=== PATIENT | male | born 1955 | race Caucasian/White ===

== ENCOUNTER 2021-05-19 12:01 | Inpatient (IN) | payer OTHER, SELFPAY ==
[2021-05-19] VITALS (34 sets, daily range): BP systolic 78–132; BP diastolic 49–106; PULSE 109–161; RESP 17–34; TEMP 36.8–40.3; O2SAT 91–100; BMI 24.0; BMI 26.3
--- NOTE | 2021-05-19 12:14 | RAD_ITS ---
STUDY: X-RAY CHEST REASON FOR EXAM: Male, 66 years old. Fever, dyspnea postop day 8 TECHNIQUE: Frontal view COMPARISON: None. FINDINGS: The lungs are expanded. Mild basilar atelectasis. Normal size heart. Normal mediastinum and alejandra. Normal visualized pulmonary arteries. Normal visualized aortic arch and descending thoracic aorta. Normal visualized thoracic spine. Normal visualized ribs, clavicles, and shoulders. There is no demonstrated abnormality of the visualized soft tissue structures of the upper abdomen. RAD/Chest 1 View (Portable) IMPRESSION: Mild basilar atelectasis. Electronically Signed: Zackery Huntley DO at 12:51 EST Tel [phone], Service support ,
--- NOTE | 2021-05-19 12:14 | EKG12_ITS ---
Test Reason : FEVER Blood Pressure : / mmHG Vent. Rate : 129 BPM Atrial Rate : 129 BPM P-R Int : 112 ms QRS Dur : 094 ms QT Int : 326 ms P-R-T Axes : 053 030 029 degrees QTc Int : 477 ms Sinus tachycardia Otherwise normal ECG Confirmed by ANTWAN MELENDREZ, ROGELIO ([id number]), business editor MARTHA PRIEST ([id number]) on 05/20/2021 1:56:08 PM Referred By: EDGAR Confirmed By:ROGELIO MONCADA MD
--- NOTE | 2021-05-19 12:15 | EDS_ITS ---
HPI History of Present Illness Chief Complaint: Fever Informant: patient and spouse/S.O. Onset/Context/Timing Onset: Today Context: Sudden Onset Timing: Continuous Quality: Fever, shaking chills and urinary symptoms Location: Current Severity: Mild Maximum Severity: Moderate Worsened by: Postop day 8, surgery Relieved by: Nothing Associated Symptoms Associated Symptoms: Per HPI Narrative Narrative: Patient is an elderly male who underwent urologic surgery at [facility] on May 10. He was released May 16. Patient states the surgery was planned take only 30 minutes. Apparently took 4 hours. He had surgery on his bladder and prostate. He had surgery because of cancer. He states he had continuous irrigation for several days. He reports dysuria, frequency and now complains of fever with shaking chills. He denies abdominal pain. He does report nausea. He does report mild shortness of breath and dyspnea on exertion. He has no antibiotic allergies. Prior similar symptoms: No Recent Illness/Hospitalization: Yes [facility] Medical History (Updated 05/19/21 @ 14:[address] Alvaro Broderick MD) Bladder cancer Bladder cancer Hypertension Home Medications NK 05/19/21 [History Last Taken Unknown] Allergy/AdvReac Type Severity Reaction Status Date / Time Iodinated Contrast Media Allergy Rash Verified 05/19/21 12:02 [CONTRASTS] Social History (Updated 05/19/21 @ 12:[address] Alvaro Broderick MD) household members: spouse Smoking Status: Former smoker alcohol intake: current alcohol intake frequency: holidays/special occasions o nly substance use type: does not use ROS ROS ED Constitutional Constitutional ED: Reports chills, fever(s) and sweats; Denies subjective or weight loss Eyes Eyes: Denies blurry vision, change in vision or diplopia ENT ENT ED: Denies ear pain, rhinorrhea or sore throat Cardiovascular Cardiovascular: Reports palpitations and racing heartbeat; Denies chest pain, orthopnea or paroxysmal nocturnal dyspnea Respiratory/Chest Respiratory/Chest: Reports cough, dyspnea and dyspnea on exertion; Denies orthopnea, paroxysmal nocturnal dyspnea or sputum Gastrointestinal Gastrointestinal: Reports nausea; Denies abdominal pain, diarrhea, melena or vomiting Genitourinary Genitourinary ED: Reports dysuria and urinary frequency; Denies hematuria Musculoskeletal Musculoskeletal: Reports arthralgias and myalgias; Denies back pain or neck pain Integumentary Denies rash Neurologic Neurologic: Reports weakness; Denies headache(s) or paresthesias Endocrine Endocrinology: Denies polydipsia, polyphagia or polyuria EXAM Physical Exam Const Vital Signs: 05/19/21 12:02 05/19/21 12:05 05/19/21 12:14 Temperature 102.6 F H 102.6 F H 102.6 F H Temperature Source Oral Oral Oral Pulse Rate 150 H 137 H 150 H Respiratory Rate 20 H 23 H 19 H Respiratory Effort Respiratory Pattern Blood Pressure 122/72 H 122/72 H Blood Pressure Mean 88 88 Pulse Ox 96 95 95 Oxygen Delivery Method Room Air Room Air Room Air 05/19/21 12:52 05/19/21 13:00 05/19/21 13:59 Temperature 98.8 F 99.7 F H Temperature Source Oral Oral Pulse Rate 122 H 117 H Respiratory Rate 22 H 19 H Respiratory Effort Normal Non-Labored Respiratory Pattern Tachypnea Blood Pressure 101/55 L 101/55 L Blood Pressure Mean 70 70 Pulse Ox 96 94 Oxygen Delivery Method Room Air Room Air 05/19/21 14:00 Temperature 99.7 F H Temperature Source Oral Pulse Rate 115 H Respiratory Rate 21 H Respiratory Effort Respiratory Pattern Blood Pressure 90/55 L Blood Pressure Mean 66 Pulse Ox 95 Oxygen Delivery Method Room Air Positive well nourished and well developed General Appearance ED: well developed and diaphoretic; Negative for pallor HEENT Reports dry mucous membranes Negative for trauma or tenderness Mouth ED: Yes dry mucous membranes Mouth: dry mucous membranes Eyes PERRL and EOMs intact bilaterally General Eye ED: Negative for pale conjunctiva or scleral icterus Neck no lymphadenopathy, supple and no JVD Chest Wall inspection of chest normal Resp normal respiratory effort and clear to auscultation bilaterally Effort and Inspection: Negative for pain with movement Cardio regular rhythm, S1 normal heart sound, S2 normal heart sound and no murmurs Rate: tachycardic GI normal to inspection, nondistended, normoactive bowel sounds, non-tender and non-distended Palpation: soft Back/Spine no CVA tenderness Thoracic Spine / Upper Back: Negative for thoracic spinal tenderness or paraspinal muscle tenderness Extremity normal to inspection General Extremety ED: Negative for edema or tenderness General Extremity: Negative for edema Neuro oriented x3, CN's II-XII intact bilaterally and no sensory deficits noted Sensorium / Orientation: alert Motor Exam: strength 5/5 throughout Psych mental status grossly normal Skin no rashes or lesions noted General Skin Exam: Negative for jaundice or pallor MDM MDM MDM Narrative Medical decision making narrative: We will received a liter of normal saline. He took Tylenol 1.5 hours prior to presentation. Since this is postop he received 2 g of cefepime. Since his abdominal exam is benign a CT of the abdomen was not ordered. If urine does not indicate evidence of infection will obtain CT of the abdomen to assess for abscess. Presents with urologic symptoms and concern for sepsis. Patient's abdomen is remarkable for tympana otherwise negative. Suspect this is related to his bladder surgery. Appropriate blood work was obtained. Chest x-ray obtained because of complaint of shortness of breath which may be due to sepsis and fever. Spoke with his urologist. He states that patient could stay here. He suspects the infection is due to the prolonged placement of Wylie. When I went to inform patient's that we would admit him to [facility] but his blood pressure was noted to be 90 systolic with a mean arterial pressure of 66. 1/3 L of normal saline was ordered. Lab Data Attestation: I reviewed the patient's lab results. Lab results narrative: Hemoglobin was 7.7 on May 13. Creatinine was 1.43. Creatinine was 1.23 on March 26. Labs: Laboratory Results - last 24 hr 05/19/21 05/19/21 05/19/21 12:17 12:17 12:17 WBC 4.6 RBC 2.74 L Hgb 7.0 L Hct 21.5 L MCV 78.5 L MCH 25.5 L MCHC 32.6 RDW Std Deviation 44.4 H RDW Coeff of Olga 15.4 H Plt Count 109 L MPV 10.5 Immature Gran % (Auto) 0.900 Neut % (Auto) 73.3 H Lymph % (Auto) 3.7 L [place] % (Auto) 22.1 H Eos % (Auto) 0.0 Baso % (Auto) 0.0 Absolute Neuts (auto) 3.4 Absolute Lymphs (auto) 0.17 L Nucleated RBC % 0 Atypical Lymphocytes 1+ PT 14.9 INR 1.2 APTT 38.7 H Sodium 133 L Potassium 4.3 Chloride 100 Carbon Dioxide 23.0 Anion Gap 10 BUN 20 H Creatinine 2.51 H Estim Creat Clear Calc 30.00 Est GFR (MDRD) Af Amer 33 L Est GFR (MDRD) Non-Af 27 L BUN/Creatinine Ratio 8.0 L Glucose 197 H Lactic Acid Calcium 8.1 L Total Bilirubin 1.00 AST 39 H ALT 23 Alkaline Phosphatase 46 Total Protein 5.8 L Albumin 2.2 L Globulin 3.6 Albumin/Globulin Ratio 0.6 L Urine Color Urine Clarity Urine pH Ur Specific [place] Urine Protein Urine Glucose (UA) Urine Ketones Urine Occult Blood Urine Nitrite Urine Bilirubin Urine Urobilinogen Ur Leukocyte Esterase Urine RBC Urine WBC Ur Squamous Epith Cells Urine Bacteria Urine Mucus 05/19/21 05/19/21 12:17 13:05 WBC RBC Hgb Hct MCV MCH MCHC RDW Std Deviation RDW Coeff of Olga Plt Count MPV Immature Gran % (Auto) Neut % (Auto) Lymph % (Auto) [place] % (Auto) Eos % (Auto) Baso % (Auto) Absolute Neuts (auto) Absolute Lymphs (auto) Nucleated RBC % Atypical Lymphocytes PT INR APTT Sodium Potassium Chloride Carbon Dioxide Anion Gap BUN Creatinine Estim Creat Clear Calc Est GFR (MDRD) Af Amer Est GFR (MDRD) Non-Af BUN/Creatinine Ratio Glucose Lactic Acid 2.6 H* Calcium Total Bilirubin AST ALT Alkaline Phosphatase Total Protein Albumin Globulin Albumin/Globulin Ratio Urine Color Yellow Urine Clarity Cloudy Urine pH 6.5 Ur Specific [place] 1.010 Urine Protein 100 H Urine Glucose (UA) Normal Urine Ketones Negative Urine Occult Blood 250 H Urine Nitrite Negative Urine Bilirubin Negative Urine Urobilinogen Normal Ur Leukocyte Esterase 500 H Urine RBC 10-25 SEEN Urine WBC >100 SEEN Ur Squamous Epith Cells 0 SEEN Urine Bacteria 1+ Urine Mucus 0 SEEN Radiography Chest X-Ray - ED: 1 View and Read by ED Physician (Single view portable chest x- ray interpreted by me at 1244. There is minimal chronic changes. Cardiac silhouette size normal. There is an ossific gas pattern noted. [place] structures are unremarkable.) Diagnostic Testing: Clinical Impression(s) from Imaging Studies Chest X-Ray 05/19/21 12:14 IMPRESSION: Mild basilar atelectasis. Electronically Signed: Zackery Huntley DO at 12:51 EST Tel [phone], Service support , EKG Initial EKG: Attestation: I personally reviewed and interpreted this EKG as follows: Interpretation: Sinus Tachycardia (Ventricular rate 129. The EKG is otherwise unremarkable. WA interval 212 ms. Cures duration 94 ms. QT duration 326 ms. Earle is normal.) Critical Care Time Critical Care Time: Yes Critical care time (excluding procedures): 30-74 minutes (34 minutes), Including time spent: (History, physical, documentation, review of patient's records from [facility], interpretation laboratory results, initiation of therapy), Discussing w/Patient &/or Family/Test Inspection Engineer, Discussing w/Consultants and Arranging Admission or Transfer Discharge Plan Triage Chief Complaint: Fever ED Provider: Alvaro Broderick Dx/Rx/DC Orders Clinical Impression: Severe sepsis with acute organ dysfunction, Sinus tachycardia, Postoperative anemia, FRANCIS (acute kidney injury), Acidosis, lactic, Acute hypotension Prescriptions: No Action NK RF: 0 Primary Care Provider: Care Physician,No Primary Referrals: NOT,DEFINED [NON-STAFF] - Disposition Disposition: Acute Care [facility]
[2021-05-19] MEDS: 0.9% Normal Saline 1,000 ML 999 ML IV (12:29)
[2021-05-19 12:30] LABS: Absolute Lymphocyte Count 0.17 X10^3/uL (0.83-4.51); Absolute Neutrophil Count 3.4 X10^3/uL (2.0-7.7); Hematocrit 21.5 % (40-54); Lymphocyte # 0.17 X10^3/ul (0.83-4.51); Lymphocyte % 3.7 % (19-41); Mean Corp Hgb Conc 32.6 g/dL (32-36); Mean Corpuscular Hgb 25.5 pg (27.0-32.0); Mean Corpuscular Volume 78.5 fL (80-94); Mean Platelet Vol. 10.5 fl (6.2-12.0); Monocyte# 1.01 X10^3/uL; Monocyte% 22.1 % (0-10); NRBC Flagged by Analyzer 0 % (0-5); Neutrophil # 3.36 X10^3/uL (2.7-7.7); Neutrophil % 73.3 % (47-70); POSITIVE DIFFERENTIAL YES; POSITIVE MORPHOLOGY YES; Platelet Count 109 K/mm3 (150-450); RBC Distribution Width CV 15.4 % (11.6-14.6); RBC Distribution Width SD 44.4 fl (35.1-43.9); Red Blood Count 2.74 M/mm3 (4.6-6.2); White Blood Count 4.6 K/mm3 (4.4-11.0)
[2021-05-19 12:32] LABS: Differential Indicated SCAN CRITERIA MET
--- NOTE | 2021-05-19 12:33 | NURSING ---
NO OLD EKG
[2021-05-19 12:39] LABS: International Normalized Ratio 1.2; Prothrombin Time (Protime)PT. 14.9 SECONDS (11.7-14.9)
[2021-05-19 12:40] LABS: Partial Thromboplast Time 38.7 Seconds (24.1-36.2)
[2021-05-19 12:46] LABS: ALB/GLOB Ratio 0.6 RATIO (0.9-2.4); AST(SGOT) 39 U/L (15-37); Alanine Aminotransfer ALT/SGPT 23 U/L (16-61); Albumin, Serum 2.2 g/dL (3.2-5.0); Alkaline Phosphatase 46 U/L (45-117); Anion Gap 10 (5-15); BUN 20 mg/dL (7-18); Calcium,Total 8.1 mg/dL (8.5-10.1); Chloride 100 mmol/L (98-107); Creatinine, Serum 2.51 mg/dL (0.70-1.30); EST Glomerular Filtration Rate 27 mL/min (>60); Est Glom Filt Rate - Afr Amer 33 mL/min (>60); Globulin 3.6 g/dL (2.2-4.2); Glucose 197 mg/dL (74-106); Potassium 4.3 mmol/L (3.5-5.1); Protein, Total 5.8 g/dL (6.4-8.2); Sodium Level 133 mmol/L (136-145)
[2021-05-19 12:52] LABS: Atypical Lymphocyte 1+ %
[2021-05-19 12:54] LABS: Lactic Acid 2.6 mmol/L (0.4-1.9)
[2021-05-19 13:15] LABS: Mucous, Urine 0 SEEN /hpf (<or=2+); Squamous Epithelial Cells - UA 0 SEEN /hpf (0-5)
[2021-05-19 13:16] LABS: Color, Urine Yellow (Yellow); Glucose, Dipstick Normal (Normal); Ketone-Dipstick Negative (Negative); Leukocyte Esterase-Dipstick 500 /ul (Negative); Nitrite-Dipstick Negative (Negative); Occult Blood-Urine 250 /ul (Negative); Protein-Dipstick 100 mg/dl (Negative); Urine Bilirubin Dipstick Negative (Negative); Urine Clarity Cloudy (Clear); Urine Urobilinogen Normal (Normal); Urine pH 6.5 (5.0 - 8.0)
[2021-05-19 13:22] LABS: Bacteria 1+ /hpf (None Seen); Red Blood Cells-Urine 10-25 SEEN /hpf (0-5); White Blood Cells >100 SEEN /hpf (0-5)
--- NOTE | 2021-05-19 13:49 | NURSING ---
CALLED [facility], TALKED TO TEODORO. SHE WILL PAGE DR RAPHAEL, UROLOGY
--- NOTE | 2021-05-19 13:50 | NURSING ---
UROLOGY FROM [facility] FOR DR MONAHAN
[2021-05-19] MEDS: 0.9% Normal Saline 1,000 ML 1000 ML IV ×2 (13:56→15:02)
--- NOTE | 2021-05-19 14:01 | NURSING ---
DR CARRILLO FOR DR MONAHAN
--- NOTE | 2021-05-19 14:23 | NURSING ---
ICU TERELETSKY HYPOTENSION, SEVERE SEPSIS WITH ORGAN DYSFUNCTION, UTI
--- NOTE | 2021-05-19 14:40 | HP.PCM_ITS ---
Documented by User: KISHOR Monson 05/19/21 14:56 HPI - General General Date of Admission: 05/19/21 Date of Service: 05/19/21 Chief Complaint: Fever HPI Narrative JAMAAL WELLER, is a 66 M who presents with complaints of a fever. Patient underwent urological surgery at [facility] on May 10 and was released on May 16. Patient states that he is surgery was due to bladder cancer and was more involved than originally anticipated. Patient states that he had a urinary catheter until May 16. Patient states that he began having urinary frequency and dysuria along with fevers at home. Patient reports this began approximately 48 hours ago. Patient does not have any other medical history and does not take any medications at this time. Patient did not receive radiation or chemotherapy in regards to his cancer. [facility] Medical History (Updated 05/19/21 @ 15:47 by Frances Hartley) Bladder cancer Bladder cancer Former smoker Hearing loss, left Hypertension Kidney stones Home Medications NK 05/19/21 [History Last Taken Unknown] Allergy/AdvReac Type Severity Reaction Status Date / Time Iodinated Contrast Media Allergy Rash Verified 05/19/21 12:02 [CONTRASTS] Surgical History (Updated 05/19/21 @ 14:43 by KISHOR Monson) History of bladder surgery Social History household members: spouse Smoking Status: Former smoker alcohol intake: current alcohol intake frequency: holidays/special occasions only substance use type: does not use ROS Constitutional Constitutional: Reports chills, fever(s), malaise and weakness; Denies anorexia or fatigue Cardiovascular Cardiovascular: Denies chest pain, edema, palpitations or syncope Respiratory/Chest Respiratory/Chest: Denies cough, shortness of breath at rest, shortness of breath with exertion or wheezing Gastrointestinal Gastrointestinal: Denies abdominal pain, constipation, diarrhea, nausea or vomiting Genitourinary Genitourinary: Reports dysuria, hematuria and urinary frequency Musculoskeletal Musculoskeletal: Denies back pain, extremity pain, joint pain or joint stiffness Integumentary Integumentary: Denies dry skin Neurologic Neurologic: Denies abnormal gait, abnormal speech, confusion, dizziness or focal weakness Psychiatric Psychiatric: Denies anxiety or depression Endocrine Endocrinology: Denies change in body appearance Hematologic/Lymphatic Hematologic/Lymphatic: Reports anemia and easy bleeding; Denies easy bruising Vital Signs Vital Signs Vital Signs: 05/19/21 12:02 05/19/21 12:05 05/19/21 12:14 Temperature 102.6 F H 102.6 F H 102.6 F H Temperature Source Oral Oral Oral Pulse Rate 150 H 137 H 150 H Respiratory Rate 20 H 23 H 19 H Respiratory Effort Respiratory Pattern Blood Pressure 122/72 H 122/72 H Blood Pressure Mean 88 88 Pulse Ox 96 95 95 Oxygen Delivery Method Room Air Room Air Room Air 05/19/21 12:52 05/19/21 13:00 05/19/21 13:59 Temperature 98.8 F 99.7 F H Temperature Source Oral Oral Pulse Rate 122 H 117 H Respiratory Rate 22 H 19 H Respiratory Effort Normal Non-Labored Respiratory Pattern Tachypnea Blood Pressure 101/55 L 101/55 L Blood Pressure Mean 70 70 Pulse Ox 96 94 Oxygen Delivery Method Room Air Room Air 05/19/21 14:00 Temperature 99.7 F H Temperature Source Oral Pulse Rate 115 H Respiratory Rate 21 H Respiratory Effort Respiratory Pattern Blood Pressure 90/55 L Blood Pressure Mean 66 Pulse Ox 95 Oxygen Delivery Method Room Air Weight Weight: 175 lb Body Mass Index (BMI) 24.0 Physical Exam Const alert, oriented x3 and no apparent distress General Appearance: cooperative HEENT normocephalic and head/scalp atraumatic Eyes conjunctivae normal and no scleral icterus Neck full ROM and supple General: trachea midline Resp normal respiratory effort, normal air movement and clear to auscultation bilaterally Cardio regular rate, regular rhythm, S1 normal heart sound, S2 normal heart sound and peripheral pulses 2+ throughout Rate: tachycardic GI normal to inspection, nondistended, normoactive bowel sounds, soft to palpation and non-tender Extremity normal capillary refill and no clubbing, cyanosis or edema General Extremity: no tenderness to palpation of joints or extremities Skin General Skin Exam: no breakdown and turgor normal Lesions: no lesions Rashes: no rashes Neuro oriented x3, moves all extremities, no focal motor deficits, no sensory deficits noted and gait normal Psych thought process normal, cooperative and affect normal Appearance: appropriate Results Lab / Micro Data Result Diagrams: 05/19/21 12:17 05/19/21 12:17 Labs: Laboratory Results - last 24 hr 05/19/21 12:17: WBC 4.6, RBC 2.74 L, Hgb 7.0 L, Hct 21.5 L, MCV 78.5 L, MCH 25.5 L, MCHC 32.6, RDW Std Deviation 44.4 H, RDW Coeff of Olga 15.4 H, Plt Count 109 L, MPV 10.5, Immature Gran % (Auto) 0.900, Neut % (Auto) 73.3 H, Lymph % (Auto) 3.7 L, [place] % (Auto) 22.1 H, Eos % (Auto) 0.0, Baso % (Auto) 0.0, Absolute Neuts (auto) 3.4, Absolute Lymphs (auto) 0.17 L, Nucleated RBC % 0, Atypical Lymphocytes 1+ 05/19/21 12:17: PT 14.9, INR 1.2, APTT 38.7 H 05/19/21 12:17: Sodium 133 L, Potassium 4.3, Chloride 100, Carbon Dioxide 23.0, Anion Gap 10, BUN 20 H, Creatinine 2.51 H, Estim Creat Clear Calc 30.00, Est GFR (MDRD) Af Amer 33 L, Est GFR (MDRD) Non-Af 27 L, BUN/Creatinine Ratio 8.0 L, Glucose 197 H, Calcium 8.1 L, Total Bilirubin 1.00, AST 39 H, ALT 23, Alkaline Phosphatase 46, Total Protein 5.8 L, Albumin 2.2 L, Globulin 3.6, Albumin/Globulin Ratio 0.6 L 05/19/21 12:17: Lactic Acid 2.6 H* 05/19/21 13:05: Urine Color Yellow, Urine Clarity Cloudy, Urine pH 6.5, Ur Specific [place] 1.010, Urine Protein 100 H, Urine Glucose (UA) Normal, Urine Ketones Negative, Urine Occult Blood 250 H, Urine Nitrite Negative, Urine Bilirubin Negative, Urine Urobilinogen Normal, Ur Leukocyte Esterase 500 H, Urine RBC 10-25 SEEN, Urine WBC >100 SEEN, Ur Squamous Epith Cells 0 SEEN, Urine Bacteria 1+, Urine Mucus 0 SEEN Radiology Impression Chest X-Ray 05/19/21 12:14 IMPRESSION: Mild basilar atelectasis. Electronically Signed: Zackery Huntley DO at 12:51 EST Tel [phone], Service support , Assessment & Plan Assessment/Plan (1) Severe sepsis with acute organ dysfunction: (2) FRANCIS (acute kidney injury): (3) Postoperative anemia: (4) Urinary tract infection: QUALIFIERS: Encounter type: initial encounter Indwelling urinary catheter type: indwelling urethral catheter Urinary tract infection type: ca theter-associated UTI Qualified Code(s): T83.511A - Infection and inflammatory reaction due to indwelling urethral catheter, initial encounter; N39.0 - Urinary tract infection, site not specified PLAN: 1. Severe sepsis with acute organ dysfunction secondary to urinary tract infection -Admit to ICU for continuous cardiac and pulse ox monitoring -Patiently recently underwent bladder surgery due to cancer and had an indwelling catheter which was removed 05/16/2021 -Urinalysis demonstrates protein 100, occult blood 250, leukocyte esterase 500 with red blood cells and white blood cells and +1 bacteria. -Patient received cefepime and 3 L normal saline bolus in ER. Will continue cefepime IV -Normal saline 150 mL/h ordered -PT and OT to eval and treat -CBC and BMP ordered daily -Vital signs per protocol 2. FRANCIS -Normal saline 150 mL/h ordered, patient received 3 L normal saline bolus in ER -CMP ordered daily -Likely secondary to sepsis 3. Anemia -Likely secondary to recent surgery as patient continues to have hematuria -Hemoglobin currently 7.0 -Patient typed and screened in ER, 2 units PRBCs ordered -Will check H&H 1 hour following the administration of packed red blood cells. -CBC ordered daily 4. Bladder cancer -Patient underwent recent surgery at [facility] on 05/10/2021. -We will obtain records from recent hospitalization Documented by User: Dr. Rodrick Alcocer, 05/19/21 16:51 HPI - General General Date of Admission: 05/19/21 PFS Medical History (Updated 05/19/21 @ 15:47 by Frances Hartley) Bladder cancer Bladder cancer Former smoker Hearing loss, left Hypertension Kidney stones Home Medications NK 05/19/21 [History Last Taken Unknown] Allergy/AdvReac Type Severity Reaction Status Date / Time Iodinated Contrast Media Allergy Rash Verified 05/19/21 12:02 [CONTRASTS] Surgical History (Updated 05/19/21 @ 14:43 by ANGEL MonsonC) History of bladder surgery Social History household members: spouse Smoking Status: Former smoker alcohol intake: current alcohol intake frequency: holidays/special occasions only substance use type: does not use Results Lab / Micro Data Result Diagrams: 05/19/21 12:17 05/19/21 12:17 Charges/Coding Addendum Addendum: Patient was seen and examined independently of Autumn Vasquez, patient underwent extensive bladder surgery for bladder cancer last week at [facility], he was released from the hospital last Thursday and followed up in his urologist office 2 days ago and had his Wylie catheter removed. This morning the patient states he had fever and chills and felt unwell. On examination he appeared his stated age. Vital signs as documented. Skin warm and dry and without overt rashes. Neck without JVD, neck was supple, trachea midline, thyroid was normal. Lungs clear bilaterally, normal air movement was noted. Heart exam notable for regular rhythm, normal sounds and absence of murmurs, rubs or gallops. Abdomen unremarkable and without evidence of organomegaly, masses, or abdominal aortic enlargement. Bowel sounds are present, abdomen is not distended. Extremities nonedematous, no cyanosis was noted, no clubbing was noted. Neuro: Cranial nerves II through XII are grossly intact, no focal motor deficits were noted, sensation to light touch and pinprick intact, motor exam 5/5 throughout. Psych: Patient is alert and oriented x3, he does not appear anxious or depressed, he does not appear agitated. Patient's labs were remarkable for hemoglobin of 7, creatinine was 2.51, BUN was 20, glucose was 197, and lactic acid was 2.6. Patient's urinalysis revealed over 100 white blood cells, 10-25 red blood cells were seen, +1 bacteria was noted. Patient became hypotensive in the ER but was asymptomatic, patient was admitted to ICU for severe sepsis, he was given IV cefepime in the emergency room and this will be continued, he was given IV fluids, and 2 units of packed red blood cells were typed and crossed for transfusion. I have reviewed Autumn Plascenciachung's history and physical including her medical assessment and plan of care and endorse it. Visit Charges Inpatient E&M: 17206 Init Hosp L3
--- NOTE | 2021-05-19 14:53 | NURSING ---
ICU 3
[2021-05-19] MEDS: 0.9% Normal Saline 1,000 ML 150 ML IV ×2 (16:25→22:46)
[2021-05-19 16:26] LABS: Reflex Lactate? Y
[2021-05-19 17:42] LABS: Lactic Acid 2.1 mmol/L (0.4-1.9)
[2021-05-19] MEDS: Acetaminophen 325 MG Tablet 650 MG PO (18:11)
--- NOTE | 2021-05-19 19:04 | EKG12_ITS ---
Test Reason : TACHYCARDIC Blood Pressure : / mmHG Vent. Rate : 152 BPM Atrial Rate : 152 BPM P-R Int : 124 ms QRS Dur : 090 ms QT Int : 264 ms P-R-T Axes : 045 033 021 degrees QTc Int : 419 ms Sinus tachycardia with occasional Premature ventricular complexes Otherwise normal ECG Confirmed by NICKO MELENDREZ, CHUCK ([id number]), metropolitan editor MARTHA PRIEST ([id number]) on 05/29/2021 9:30:47 AM Referred By: SAM NOLAN Confirmed By:CHUCK MAHARAJ MD
[2021-05-19 23:57] LABS: Hematocrit 22.1 % (40-54); Hemoglobin 7.2 g/dL (13.0-16.5)
[2021-05-20] VITALS (42 sets, daily range): BP systolic 73–141; BP diastolic 44–98; PULSE 78–124; RESP 16–28; TEMP 36.4–37.4; O2SAT 93–100
[2021-05-20] MEDS: Acetaminophen 325 MG Tablet 650 MG PO ×5 (01:00→23:52)
[2021-05-20 04:38] LABS: Absolute Lymphocyte Count 0.37 X10^3/uL (0.83-4.51); Absolute Neutrophil Count 4.9 X10^3/uL (2.0-7.7); Hematocrit 23.6 % (40-54); Hemoglobin 7.5 g/dL (13.0-16.5); Lymphocyte # 0.37 X10^3/ul (0.83-4.51); Lymphocyte % 5.6 % (19-41); Mean Corp Hgb Conc 31.8 g/dL (32-36); Mean Corpuscular Hgb 26.5 pg (27.0-32.0); Mean Corpuscular Volume 83.4 fL (80-94); Mean Platelet Vol. 10.8 fl (6.2-12.0); Monocyte# 1.18 X10^3/uL; Monocyte% 17.9 % (0-10); NRBC Flagged by Analyzer 0 % (0-5); Neutrophil # 4.94 X10^3/uL (2.7-7.7); Neutrophil % 75.1 % (47-70); POSITIVE COUNT YES; POSITIVE DIFFERENTIAL YES; POSITIVE MORPHOLOGY YES; Platelet Count 82 K/mm3 (150-450); RBC Distribution Width CV 15.4 % (11.6-14.6); RBC Distribution Width SD 47.5 fl (35.1-43.9); Red Blood Count 2.83 M/mm3 (4.6-6.2); White Blood Count 6.6 K/mm3 (4.4-11.0)
[2021-05-20 04:39] LABS: Differential Indicated SCAN CRITERIA MET
[2021-05-20 04:45] LABS: Anion Gap 6 (5-15); BUN 26 mg/dL (7-18); BUN/Creat Ratio 11.5 RATIO (10-20); Calcium,Total 7.3 mg/dL (8.5-10.1); Chloride 112 mmol/L (98-107); Creatinine, Serum 2.26 mg/dL (0.70-1.30); EST Glomerular Filtration Rate 31 mL/min (>60); Est Glom Filt Rate - Afr Amer 37 mL/min (>60); Estimated Creatinine Clearance 33.32 ml/min; Glucose 158 mg/dL (74-106); Potassium 3.9 mmol/L (3.5-5.1); Sodium Level 141 mmol/L (136-145)
[2021-05-20] MEDS: 0.9% Normal Saline 1,000 ML 150 ML IV ×3 (05:40→18:26)
--- NOTE | 2021-05-20 07:08 | CON.PCM.CC_ITS ---
Assessment & Plan Assessment/Plan (1) Severe sepsis with acute organ dysfunction: (2) Sinus tachycardia: (3) Postoperative anemia: (4) Urinary tract infection: QUALIFIERS: Urinary tract infection type: catheter-associated UTI Indwelling urinary catheter type: indwelling urethral catheter Encounter type: initial encounter Qualified Code(s): T83.511A - Infection and inflammatory reaction due to indwelling urethral catheter, initial encounter; N39.0 - Urinary tract infection, site not specified (5) Bladder cancer: PLAN: RECOMMENDATIONS: 1. Wean pressors as tolerated. Maintain MAP greater than 65 2. Hold on diuretic therapy for now 3. Transfuse for hemoglobin less than 7 unless clinical signs of bleeding (goal: Less than 8) 4. Increase activity as tolerated IMPRESSIONS: 1. Septic shock secondary to UTI secondary to gram-negative Patient already growing gram-negative's in his blood in less than 24 hours. Clinical suspicion for an element of lysis syndrome leading to need for continued pressors. Cefepime is appropriate. No indication for vancomycin. Will wean pressors as tolerated. Okay to continue with volume resuscitation for now, but likely KVO IV fluids if patient develops an oxygen requirement. If renal function not improving, ultrasound may be necessary. 2. Acute kidney injury Clinical suspicion for prerenal etiology. We will continue to monitor renal function on a daily basis. If not improved by tomorrow, recommend a bladder and renal ultrasound for evaluation of post renal complications. Urine output has improved with fluid resuscitation. 3. Anemia Unclear etiology. Patient does not have any clinical bleeding at this time. Patient did recently have surgery. Patient may have an element of hemodilution this morning leading to poor incrementation. We will continue to monitor clinically. Patient has no clinical signs of bleeding, hemoglobin of 7 should be sufficient. If patient develops bleeding clinically, goal of hemoglobin 8 would be more appropriate. 4. Recent bladder cancer/advanced age/thrombocytopenia Complicates care, management, recovery and prognosis. Okay to continue with current medications. Cannot exclude an element of bone marrow suppression given recent diagnosis of cancer, but historical data is not available at this time. HPI Consult Data Date of Consult: 05/20/21 HPI Narrative HPI Narrative: JAMAAL WELLER is a 66 M, with past medical history listed below, who presents to [facility] 05/19/2021 secondary to fever, chills and dysuria. Patient reportedly was postop day 8 after undergoing urologic surgery at [facility] and was released on May 16. Surgery reportedly was supposed to last only 30 minutes, but apparently took 4 hours. Patient was on continuous irrigation for several days. At home, patient had reported dysuria, frequency, fever and chills. No diarrhea, but nausea and abdominal bloating were reported. Patient did have some mild dyspnea on exertion. In the ER, patient was noted to have a temperature of 102.6 ?F, tachycardic at 150 bpm, but normotensive at 122/72. Patient was saturating well on room air. Over the course of the ER, patient became progressively hypotensive to as low as 90/55, but tachycardia did improve. Patient received 3 L of IV fluids in the ER, along with cefepime. Laboratory examination showed a white blood cell count of 4.6, hemoglobin of 7 and platelet count of 109. Coagulation studies were relatively unremarkable, but creatinine was elevated at 2.5. LFTs were relatively unremarkable, but lactate was elevated at 2.6. UA was suggestive of an infection. Chest x-ray showed only basilar atelectasis and EKG was consistent with sinus tachycardia. Patient was given fluids per the sepsis protocol. Patient has required initiation of Levophed to maintain blood pressures. Patient was then transferred to the intensive care unit for further evaluation. Since being in the intensive care unit, patient has been relatively stable on low-dose Levophed. Patient states he feels subjectively improved. Patient states he had had some hematuria initially on presentation, but this has re solved overnight. Patient is denying any chest pain, abdominal pain, nausea or vomiting. Patient states that he was of his usual health prior to the his bladder surgery. Patient has never seen a bus transportation manager. Patient does have a smoking history in the past, but has never been diagnosed with asthma or COPD. Patient has not had sepsis previously. Patient had not had a chronic indwelling Wylie prior to the surgery. Patient denies any recent travel and only had antibiotics for the surgery. 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 Review of systems otherwise negative from a constitutional, HEENT, respiratory, cardiovascular, GI, genitourinary, musculoskeletal, skin, neurologic, psychiatric and hematologic system unless stated above. [facility] Medical History Bladder cancer Bladder cancer Former smoker Hearing loss, left Hypertension Kidney stones Home Medications NK 05/19/21 [History Last Taken Unknown] Allergy/AdvReac Type Severity Reaction Status Date / Time Iodinated Contrast Media Allergy Rash Verified 05/19/21 12:02 [CONTRASTS] Surgical History History of bladder surgery Social History household members: spouse Smoking Status: Former smoker alcohol intake: current alcohol intake frequency: holidays/special occasions only substance use type: does not use ROS ROS Narrative See HPI Physical Exam Const alert, oriented x3 and no apparent distress General Appearance: cooperative and well developed HEENT normocephalic and head/scalp atraumatic HEENT Narrative: Alopecia noted Eyes PERRL, EOMs intact bilaterally and conjunctivae normal Neck full ROM Lymph Lymphatic: no lymphadenopathy noted Resp normal respiratory effort and no use of accessory muscles Effort and Inspection: able to speak in complete sentences Auscultation: clear to auscultation bilaterally; Negative for rales, rhonchi or wheezes Cardio regular rate, regular rhythm, S1 normal heart sound, S2 normal heart sound, no murmurs, no rub, no gallops and no JVD GI soft to palpation and non-tender Inspection: Negative for anasarca present Palpation: Negative for guarding Extremity no clubbing, cyanosis or edema Skin no rashes or lesions noted Neuro oriented x3 Psych cooperative and affect normal Appearance: well kempt Lab / Micro Data Result Diagrams: 05/20/21 04:00 05/20/21 04:00 Labs: Laboratory Results - last 24 hr 05/19/21 12:17: WBC 4.6, RBC 2.74 L, Hgb 7.0 L, Hct 21.5 L, MCV 78.5 L, MCH 25.5 L, MCHC 32.6, RDW Std Deviation 44.4 H, RDW Coeff of Olga 15.4 H, Plt Count 109 L, MPV 10.5, Immature Gran % (Auto) 0.900, Neut % (Auto) 73.3 H, Lymph % (Auto) 3.7 L, [place] % (Auto) 22.1 H, Eos % (Auto) 0.0, Baso % (Auto) 0.0, Absolute Neuts (auto) 3.4, Absolute Lymphs (auto) 0.17 L, Nucleated RBC % 0, Atypical Lymphocytes 1+ 05/19/21 12:17: PT 14.9, INR 1.2, APTT 38.7 H 05/19/21 12:17: Sodium 133 L, Potassium 4.3, Chloride 100, Carbon Dioxide 23.0, Anion Gap 10, BUN 20 H, Creatinine 2.51 H, Estim Creat Clear Calc 30.00, Est GFR (MDRD) Af Amer 33 L, Est GFR (MDRD) Non-Af 27 L, BUN/Creatinine Ratio 8.0 L, Glucose 197 H, Calcium 8.1 L, Total Bilirubin 1.00, AST 39 H, ALT 23, Alkaline Phosphatase 46, Total Protein 5.8 L, Albumin 2.2 L, Globulin 3.6, Albumin/Globulin Ratio 0.6 L 05/19/21 12:17: Lactic Acid 2.6 H* 05/19/21 13:05: Urine Color Yellow, Urine Clarity Cloudy, Urine pH 6.5, Ur Specific [place] 1.010, Urine Protein 100 H, Urine Glucose (UA) Normal, Urine Ketones Negative, Urine Occult Blood 250 H, Urine Nitrite Negative, Urine Bilirubin Negative, Urine Urobilinogen Normal, Ur Leukocyte Esterase 500 H, Urine RBC 10-25 SEEN, Urine WBC >100 SEEN, Ur Squamous Epith Cells 0 SEEN, Urine Bacteria 1+, Urine Mucus 0 SEEN 05/19/21 14:53: Blood Type O POSITIVE, Antibody Screen NEGATIVE, Crossmatch See Detail 05/19/21 17:10: Lactic Acid 2.1 H* 05/19/21 19:56: COVID-19 (MARILU) Not Detected 05/19/21 23:45: Hgb 7.2 L, Hct 22.1 L 05/20/21 04:00: WBC 6.6, RBC 2.83 L, Hgb 7.5 L, Hct 23.6 L, MCV 83.4 D, MCH 26.5 L, MCHC 31.8 L, RDW Std Deviation 47.5 H, RDW Coeff of Olga 15.4 H, Plt Count 82 L, MPV 10.8, Immature Gran % (Auto) 1.400 H, Neut % (Auto) 75.1 H, Lymph % (Auto) 5.6 L, [place] % (Auto) 17.9 H, Eos % (Auto) 0.0, Baso % (Auto) 0.0, Absolute Neuts (auto) 4.9, Absolute Lymphs (auto) 0.37 L, Nucleated RBC % 0 05/20/21 04:00: Sodium 141, Potassium 3.9, Chloride 112 H, Carbon Dioxide 23.0, Anion Gap 6, BUN 26 H, Creatinine 2.26 H, Estim Creat Clear Calc 33.32, Est GFR (MDRD) Af Amer 37 L, Est GFR (MDRD) Non-Af 31 L, BUN/Creatinine Ratio 11.5, Glucose 158 H, Calcium 7.3 L Micro: Microbiology 05/19/21 12:17 Blood Culture (Wb) - Right Forearm Blood Culture - Preliminary 05/19/21 12:17 Blood Culture (Wb) - Anticubital Left Blood Culture - Preliminary Radiology Impression Chest X-Ray 05/19/21 12:14 IMPRESSION: Mild basilar atelectasis. Electronically Signed: Zackery Huntley DO at 12:51 EST Tel [phone], Service support , Charges/Coding Procedures Hospitalists Procedures: [id number] Critial Care 1st Hr
[2021-05-20] MEDS: TITRATION PARAMETER CHANGE 1 EACH IV (08:39)
--- NOTE | 2021-05-20 09:50 | CASEMGMT ---
RN CM Face to Face with patient for initial transition planning/care coordination assessment. RN CM introduced self and role at [facility]. Patient lying in bed, alert and oriented. Patient willing to participate in assessment and is able to answer all questions appropriately. Care providers, pharmacy, and demographics verified. Patient wishes to discharge home, denies need for home health at this time. Patient states he has no further needs or concerns at this time. CM to follow for discharge planning needs that may arise. PCP: No PCP, patient provided with list of PCP Specialists: Castillo urologist; Concepcion urologistValente Preferred Pharmacy: [facility] retail at discharge Insurance: has a FAP plan Prescription Benefit: none Living Will/HPOA: yes, Shubham Alfaro LNOK: Living Arrangements: Patient lives with in a single story home with 4 steps and railing to enter. Patient states he is independent at home. Transportation: /self DME/HHC: patient states he has shower chair, rasied toilet, cane, walker, hospital bed, and grab bars at home. Disposition Plan: Patient to discharge home with family support and follow-up plans in place. Marcia RUSS, RN, CM
--- NOTE | 2021-05-20 15:23 | PN.HOSP_ITS ---
Subjective Subjective Patient states overall he is feeling better. Unfortunately, he still remains on Levophed at low-dose for hypotension. He states that his blood pressure is never markedly elevated and he takes no antihypertensives at baseline. He reports that he has to undergo further treatment with regards to his bladder cancer and has follow-up at [facility] for this in the near future. Objective Data Objective Data Vital Signs: Vital Signs Temp Pulse Resp BP Pulse Ox 98.6 F 105 H 24 H 109/76 99 05/20/21 15:00 05/20/21 15:01 05/20/21 15:00 05/20/21 15:00 05/20/21 15:00 Oxygen Flow Rate (L/min) 2 Oxygen Delivery Method Room Air Weight: 85.6 kg Body Mass Index (BMI) 26.3 Intake & Output: Intake and Output for Last 24 Hours 05/18/21 05/19/21 05/20/21 23:59 23:59 23:59 Intake Total 3660 / 3661.72 3629.26 / 3629.26 Output Total 1250 / 1375 2125 / 2125 Balance 2410 / 2286.72 1504.26 / 1504.26 Lab / Micro Data Result Diagrams: 05/20/21 04:00 05/20/21 04:00 Labs: Laboratory Results - last 24 hr 05/19/21 14:53: Blood Type O POSITIVE, Antibody Screen NEGATIVE, Crossmatch See Detail 05/19/21 17:10: Lactic Acid 2.1 H* 05/19/21 19:56: COVID-19 (MARILU) Not Detected 05/19/21 23:45: Hgb 7.2 L, Hct 22.1 L 05/20/21 04:00: WBC 6.6, RBC 2.83 L, Hgb 7.5 L, Hct 23.6 L, MCV 83.4 D, MCH 26.5 L, MCHC 31.8 L, RDW Std Deviation 47.5 H, RDW Coeff of Olga 15.4 H, Plt Count 82 L, MPV 10.8, Immature Gran % (Auto) 1.400 H, Neut % (Auto) 75.1 H, Lymph % (Auto) 5.6 L, [place] % (Auto) 17.9 H, Eos % (Auto) 0.0, Baso % (Auto) 0.0, Absolute Neuts (auto) 4.9, Absolute Lymphs (auto) 0.37 L, Nucleated RBC % 0 05/20/21 04:00: Sodium 141, Potassium 3.9, Chloride 112 H, Carbon Dioxide 23.0, Anion Gap 6, BUN 26 H, Creatinine 2.26 H, Estim Creat Clear Calc 33.32, Est GFR (MDRD) Af Amer 37 L, Est GFR (MDRD) Non-Af 31 L, BUN/Creatinine Ratio 11.5, Glucose 158 H, Calcium 7.3 L Micro: Microbiology 05/19/21 13:05 Urine, Clean Catch Urine Culture - Preliminary GNR lactose tobacco blender Physical Exam Const alert, oriented x3, no apparent distress and average body habitus Constitutional Narrative: Upper middle-aged white male sitting up in a chair at the bedside, appears comfortable, nontoxic, very pleasant Exam Limitations: no limitations Nutritional Appearance: overweight HEENT head/scalp atraumatic, moist oral mucous membranes and oropharynx normal HEENT Narrative: Mallampati 2, dentition fair, no thrush Head and Scalp: normocephalic Resp normal respiratory effort, no retractions, no use of accessory muscles and clear to auscultation bilaterally Auscultation: Negative for crackles, rales, rhonchi or wheezes Cardio regular rhythm, S1 normal heart sound, S2 normal heart sound, no murmurs, no rub, no gallops, no clicks and no JVD Cardio Narrative: Mild tachycardia GI normal to inspection, nondistended, normoactive bowel sounds, soft to palpation, non-tender and non-distended Extremity no clubbing, cyanosis or edema Peripheral Pulses: Yes pulses 2+ throughout Neuro oriented x3, moves all extremities and no focal motor deficits Sensorium / Orientation: awake and alert Speech: speech normal Assessment & Plan Assessment/Plan (1) Septic shock: (2) Sinus tachycardia: (3) Acidosis, lactic: (4) Gram-negative bacteremia: (5) Postoperative anemia: (6) FRANCIS (acute kidney injury): PLAN: Septic shock secondary to gram-negative bacteremia related to urinary tract infection -Gram-negative rods in 2 of 2 blood cultures -Patient remains on low-dose pressors--> Levophed -Wean as able -Continue IV fluids at current rate and once off pressors will decrease rate -Patient had a Wylie for an extended period of time after surgery--> removed on 05/15/2021 -Urine output is good -Continue broad-spectrum antibiotics with cefepime until organism is identified Lactic acidosis -Trended down since admission and suspect resolved at this time FRANCIS -Baseline serum creatinine is unknown -Continue IV fluids at current rate -Trending down slowly -Continue to monitor and if not significantly improved in the next 24 hours we will do further work-up -Avoid nephrotoxins as able Hyperglycemia -Fasting blood sugars are elevated -May be reactive related to acute infection -Check hemoglobin A1c although this will be lower than reality given anemia Normocytic anemia -Baseline hemoglobin is unknown -Suspect may be related to recent surgery and gram-negative sepsis -No obvious signs of blood loss -Continue to monitor -She was transfused 1 unit packed red blood cells Thrombocytopenia -Suspect related to gram-negative sepsis -Slight reduction the last 24 hours -Also may be hemodilution will -Continue to monitor Bladder cancer -Diagnosed and underwent surgery at [facility] on 05/10/2021 -Surgical procedure was longer than anticipated -She is to follow-up with his urologist after discharge History of tobacco abuse -No current smoking -Recommend continued cessation DVT prophylaxis -Chemoprophylaxis was deferred given anemia and thrombocytopenia -Continue SCDs while in bed CODE STATUS -Full code
--- NOTE | 2021-05-20 15:23 | PCS.PANDOC ---
PANDEMIC DOCUMENTATION INITIATED: Date: 02/11/2021 Time: 190
[2021-05-20 16:24] LABS: Hemoglobin A1c 5.4 % (3.8-5.6)
[2021-05-20] MEDS: 0.9% Saline Lock 10 ML Syringe IV (21:13)
[2021-05-21] VITALS (16 sets, daily range): BP systolic 114–149; BP diastolic 67–93; PULSE 105–129; RESP 17–30; TEMP 36.8–38.1; O2SAT 92–99
[2021-05-21] MEDS: 0.9% Normal Saline 1,000 ML 150 ML IV (01:07)
[2021-05-21 04:31] LABS: Absolute Lymphocyte Count 0.36 X10^3/uL (0.83-4.51); Absolute Neutrophil Count 1.4 X10^3/uL (2.0-7.7); Basophil# 0.01 X10^3/uL; Basophil% 0.4 % (0-1); Hematocrit 24.4 % (40-54); Hemoglobin 7.8 g/dL (13.0-16.5); Lymphocyte # 0.36 X10^3/ul (0.83-4.51); Lymphocyte % 15.3 % (19-41); Mean Corpuscular Hgb 26.7 pg (27.0-32.0); Mean Corpuscular Volume 83.6 fL (80-94); Mean Platelet Vol. 10.6 fl (6.2-12.0); Monocyte# 0.52 X10^3/uL; Monocyte% 22.1 % (0-10); NRBC Flagged by Analyzer 0 % (0-5); Neutrophil # 1.43 X10^3/uL (2.7-7.7); Neutrophil % 60.9 % (47-70); POSITIVE COUNT YES; POSITIVE DIFFERENTIAL YES; Platelet Count 72 K/mm3 (150-450); RBC Distribution Width CV 15.9 % (11.6-14.6); RBC Distribution Width SD 48.1 fl (35.1-43.9); Red Blood Count 2.92 M/mm3 (4.6-6.2); White Blood Count 2.4 K/mm3 (4.4-11.0)
[2021-05-21 04:36] LABS: ALB/GLOB Ratio 0.5 RATIO (0.9-2.4); AST(SGOT) 40 U/L (15-37); Alanine Aminotransfer ALT/SGPT 22 U/L (16-61); Albumin, Serum 1.7 g/dL (3.2-5.0); Alkaline Phosphatase 41 U/L (45-117); Anion Gap 7 (5-15); BUN 24 mg/dL (7-18); BUN/Creat Ratio 12.2 RATIO (10-20); Calcium,Total 7.1 mg/dL (8.5-10.1); Chloride 114 mmol/L (98-107); Creatinine, Serum 1.97 mg/dL (0.70-1.30); EST Glomerular Filtration Rate 36 mL/min (>60); Est Glom Filt Rate - Afr Amer 44 mL/min (>60); Estimated Creatinine Clearance 38.22 ml/min; Globulin 3.6 g/dL (2.2-4.2); Glucose 124 mg/dL (74-106); Potassium 3.7 mmol/L (3.5-5.1); Protein, Total 5.3 g/dL (6.4-8.2); Sodium Level 142 mmol/L (136-145)
[2021-05-21 04:45] LABS: Differential Indicated SCAN CRITERIA MET
[2021-05-21 04:51] LABS: Differential Comment SCANNED; Hypochromasia 1+
--- NOTE | 2021-05-21 06:49 | PN.CC_ITS ---
Assessment & Plan Assessment/Plan (1) Severe sepsis with acute organ dysfunction: (2) Sinus tachycardia: (3) Postoperative anemia: (4) Urinary tract infection: QUALIFIERS: Urinary tract infection type: catheter-associated UTI Indwelling urinary catheter type: indwelling urethral catheter Encounter type: initial encounter Qualified Code(s): T83.511A - Infection and inflammatory reaction due to indwelling urethral catheter, initial encounter; N39.0 - Urinary tract infection, site not specified (5) Bladder cancer: PLAN: RECOMMENDATIONS: 1. KVO IV fluids 2. Consider outpatient work-up for obstructive sleep apnea 3. Transfuse for hemoglobin less than 7 unless clinical signs of bleeding (goal: Less than 8) 4. Okay to leave the intensive care unit from my perspective 5. Hemodynamically stable on room air. Will sign off from a critical care perspective IMPRESSIONS: 1. Septic shock secondary to UTI secondary to gram-negative Patient much improved compared to yesterday. Patient has been off of pressors for over 12 hours and tolerating well. Cefepime appears to be appropr iate until species and sensitivities are available for transition to p.o. Patient has been hemodynamically stable and can likely leave the intensive care unit. Will sign off from a critical care perspective. 2. Acute kidney injury Improving. Clinical suspicion for prerenal etiology. We will continue to monitor renal function on a daily basis. Urine output has improved with fluid resuscitation. 3. Anemia/sinus tachycardia Unclear etiology. Patient does not have any clinical bleeding at this time. Patient did recently have surgery. Patient may have an element of hemodilution this morning leading to poor incrementation. H&H has remained stable. We will continue to monitor clinically. Patient has no clinical signs of bleeding, hemoglobin of 7 should be sufficient. If patient develops bleeding clinically, goal of hemoglobin 8 would be more appropriate. 4. Recent bladder cancer/advanced age/thrombocytopenia/nocturnal hypoxia Complicates care, management, recovery and prognosis. Okay to continue with current medications. Cannot exclude an element of bone marrow suppression given recent diagnosis of cancer, but historical data is not available at this time. Patient with intermittent desaturations with sleep. This would be suggestive of obstructive sleep apnea. This work-up can be completed as an outpatient. Subjective Subjective The patient did okay overnight. No acute issues were ported. Patient has been off of Levophed since approximately 2 PM yesterday. No active bleeding has been noted. Nursing did report patient intermittently desaturates with sleep. Patient with no complaints this morning. Objective Data Objective Data Vital Signs: Vital Signs Temp Pulse Resp BP Pulse Ox 36.8 C 118 H 21 H 128/80 H 95 05/21/21 04:00 05/21/21 06:00 05/21/21 06:00 05/21/21 06:00 05/21/21 06:00 Oxygen Flow Rate (L/min) 2 Oxygen Delivery Method Room Air Weight: 85.6 kg Body Mass Index (BMI) 26.3 Intake & Output: Intake and Output for Last 24 Hours 05/19/21 05/20/21 05/21/21 23:59 23:59 23:59 Intake Total 3660 / 3661.72 5429.26 / 5429.26 1732.5 / 1732.5 Output Total 1250 / 1375 3250 / 3525 675 / 675 Balance 2410 / 2286.72 2179.26 / 1904.26 1057.5 / 1057.5 Lab / Micro Data Result Diagrams: 05/21/21 04:08 05/21/21 04:08 Labs: Laboratory Results - last 24 hr 05/20/21 04:00: Hemoglobin A1c 5.4 05/21/21 04:08: WBC 2.4 L, RBC 2.92 L, Hgb 7.8 L, Hct 24.4 L, MCV 83.6, MCH 26.7 L, MCHC 32.0, RDW Std Deviation 48.1 H, RDW Coeff of Olga 15.9 H, Plt Count 72 L, MPV 10.6, Immature Gran % (Auto) 1.300 H, Neut % (Auto) 60.9, Lymph % (Auto) 15.3 L, [place] % (Auto) 22.1 H, Eos % (Auto) 0.0, Baso % (Auto) 0.4, Absolute Neuts (auto) 1.4 L, Absolute Lymphs (auto) 0.36 L, Nucleated RBC % 0, Differential Comment SCANNED, Diff Path Review May foll, Hypochromasia 1+ 05/21/21 04:08: Sodium 142, Potassium 3.7, Chloride 114 H, Carbon Dioxide 21.0, Anion Gap 7, BUN 24 H, Creatinine 1.97 H, Estim Creat Clear Calc 38.22, Est GFR (MDRD) Af Amer 44 L, Est GFR (MDRD) Non-Af 36 L, BUN/Creatinine Ratio 12.2, Glucose 124 H, Calcium 7.1 L, Total Bilirubin 0.30, AST 40 H, ALT 22, Alkaline Phosphatase 41 L, Total Protein 5.3 L, Albumin 1.7 L, Globulin 3.6, Albumin/Globulin Ratio 0.5 L Micro: Microbiology 05/19/21 13:05 Urine, Clean Catch Urine Culture - Preliminary GNR lactose parking lot spotter Physical Exam Const alert, oriented x3 and no apparent distress General Appearance: cooperative and well developed HEENT normocephalic and head/scalp atraumatic HEENT Narrative: Alopecia noted Eyes PERRL, EOMs intact bilaterally and conjunctivae normal Neck full ROM Lymph Lymphatic: no lymphadenopathy noted Resp normal respiratory effort and no use of accessory muscles Effort and Inspection: able to speak in complete sentences Auscultation: clear to auscultation bilaterally; Negative for rales, rhonchi or wheezes Cardio regular rate, regular rhythm, S1 normal heart sound, S2 normal heart sound, no murmurs, no rub, no gallops and no JVD GI soft to palpation and non-tender Inspection: Negative for anasarca present Palpation: Negative for guarding Extremity no clubbing, cyanosis or edema Skin no rashes or lesions noted Neuro oriented x3 Psych cooperative and affect normal Appearance: well kempt Charges/Coding Visit Charges Inpatient E&M: 46978 Subs Hosp L3
[2021-05-21] MEDS: Furosemide 40 MG/4 ML Vial IV (08:47)
[2021-05-21] MEDS: CHLORHEXIDINE GLUC 2% CLOTH 1 EACH TOWELETTE TOPICAL (08:53)
--- NOTE | 2021-05-21 12:44 | PN.HOSP_ITS ---
Subjective Subjective Patient reports he is feeling better today. Levophed was able to be discontinued yesterday at approximately 2 PM and he has been off pressors since that point time. The patient has no urgent issues at this time and states he had an overall good night. He is anxious to go home. Objective Data Objective Data Vital Signs: Vital Signs Temp Pulse Resp BP Pulse Ox 99.0 F 114 H 17 127/86 H 97 05/21/21 12:00 05/21/21 12:00 05/21/21 12:00 05/21/21 12:00 05/21/21 12:00 Oxygen Flow Rate (L/min) 2 Oxygen Delivery Method Room Air Weight: 87.9 kg Body Mass Index (BMI) 26.3 Intake & Output: Intake and Output for Last 24 Hours 05/19/21 05/20/21 05/21/21 23:59 23:59 23:59 Intake Total 3660 / 3661.72 5429.26 / 5429.26 2552.5 / 2552.5 Output Total 1250 / 1375 3250 / 3525 3725 / 3725 Balance 2410 / 2286.72 2179.26 / 1904.26 -1172.5 / -1172.5 Lab / Micro Data Result Diagrams: 05/21/21 04:08 05/21/21 04:08 Labs: Laboratory Results - last 24 hr 05/20/21 04:00: Hemoglobin A1c 5.4 05/21/21 04:08: WBC 2.4 L, RBC 2.92 L, Hgb 7.8 L, Hct 24.4 L, MCV 83.6, MCH 26.7 L, MCHC 32.0, RDW Std Deviation 48.1 H, RDW Coeff of Olga 15.9 H, Plt Count 72 L, MPV 10.6, Immature Gran % (Auto) 1.300 H, Neut % (Auto) 60.9, Lymph % (Auto) 15.3 L, [place] % (Auto) 22.1 H, Eos % (Auto) 0.0, Baso % (Auto) 0.4, Absolute Neuts (auto) 1.4 L, Absolute Lymphs (auto) 0.36 L, Nucleated RBC % 0, Differ ential Comment SCANNED, Diff Path Review May foll, Hypochromasia 1+ 05/21/21 04:08: Sodium 142, Potassium 3.7, Chloride 114 H, Carbon Dioxide 21.0, Anion Gap 7, BUN 24 H, Creatinine 1.97 H, Estim Creat Clear Calc 38.22, Est GFR (MDRD) Af Amer 44 L, Est GFR (MDRD) Non-Af 36 L, BUN/Creatinine Ratio 12.2, Glucose 124 H, Calcium 7.1 L, Total Bilirubin 0.30, AST 40 H, ALT 22, Alkaline Phosphatase 41 L, Total Protein 5.3 L, Albumin 1.7 L, Globulin 3.6, Albumin/Globulin Ratio 0.5 L Micro: Microbiology 05/19/21 12:17 Blood Culture (Wb) - Right Forearm Blood Culture - Final 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 05/19/21 12:17 Blood Culture (Wb) - Anticubital Left Blood Culture - Final Escherichia coli 05/19/21 13:05 Urine, Clean Catch Urine Culture - Final Escherichia coli Physical Exam Const alert, oriented x3, no apparent distress and average body habitus Constitutional Narrative: Upper middle-aged white male sitting up in bed at the bedside, appears comfortable, nontoxic, very pleasant General Appearance: cooperative Exam Limitations: no limitations Nutritional Appearance: overweight HEENT normocephalic, head/scalp atraumatic, moist oral mucous membranes and oropharynx normal Head and Scalp: normocephalic Eyes no scleral icterus Neck full ROM General: trachea midline Resp normal respiratory effort, normal air movement, no retractions, no use of accessory muscles and clear to auscultation bilaterally Resp Narrative: Few crackles at bilateral bases Auscultation: Negative for crackles, rales, rhonchi or wheezes Cardio regular rhythm, S1 normal heart sound, S2 normal heart sound, no murmurs, no rub, no gallops, no clicks, no JVD and peripheral pulses 2+ throughout Cardio Narrative: Mild tachycardia Rate: tachycardic GI normal to inspection, nondistended, normoactive bowel sounds, soft to palpation, non-tender and non-distended Extremity normal capillary refill and no clubbing, cyanosis or edema General Extremity: no tenderness to palpation of joints or extremities Peripheral Pulses: Yes pulses 2+ throughout Skin no rashes or lesions noted, no wounds, skin turgor normal, no jaundice, no petechiae and no mottling General Skin Exam: no breakdown and turgor normal Lesions: no lesions Rashes: no rashes Neuro oriented x3, moves all extremities, no focal motor deficits and gait normal Sensorium / Orientation: awake and alert Speech: speech normal Psych thought process normal and cooperative Appearance: appropriate Assessment & Plan Assessment/Plan (1) Septic shock: (2) Sinus tachycardia: (3) Acidosis, lactic: (4) Gram-negative bacteremia: (5) Postoperative anemia: (6) FRANCIS (acute kidney injury): PLAN: Septic shock secondary to E. coli bacteremia related to complicated urinary tract infection -Shock resolved -E. coli in 2 of 2 blood cultures and urine culture--> these appear to be the same organism -Patient is now off pressors since 2 PM 05/20/2021 -Discontinue IV fluids -Patient had a Wylie for an extended period of time after surgery--> removed on 05/15/2021 -Urine output is good -We will narrow antibiotics to ceftriaxone with culture results and likely discharge on Keflex to complete a full course of 10 days with recent instrumentation with regards to his bladder Lactic acidosis -Resolved FRANCIS -Baseline serum creatinine was found to be 1.3-1.5 -Current serum creatinine is 1.97 and has improved from 2.5 on admission -Trending down slowly -Discontinue IV fluids -Avoid nephrotoxins as able Hyperglycemia -Fasting blood sugars are elevated -Likely related to sepsis and acute infection -A1c was 5.4 Normocytic anemia -Baseline hemoglobin is unknown -Suspect may be related to recent surgery and gram-negative sepsis -No obvious signs of blood loss and counts remained stable at this time -Continue to monitor -She was transfused 1 unit packed red blood cells Thrombocytopenia -Suspect related to gram-negative sepsis -Slight reduction the last 24 hours -Continue to monitor Bladder cancer -Diagnosed and underwent surgery at [facility] on 05/10/2021 -Surgical procedure was longer than anticipated -She is to follow-up with his urologist after discharge History of tobacco abuse -No current smoking -Recommend continued cessation DVT prophylaxis -Chemoprophylaxis was deferred given anemia and thrombocytopenia -Continue SCDs while in bed CODE STATUS -Full code Disposition: -Probable discharge home within the next 24 hours Charges/Coding Visit Charges Inpatient E&M: 18906 Subs Hosp L2
--- NOTE | 2021-05-21 17:31 | NURSING ---
report called to med-surg bethsferred per chair with belongings to room 114, present
[2021-05-22 04:57] VITALS: BP 156/81; PULSE 108; RESP 16; TEMP 36.6; O2SAT 94
[2021-05-22 06:32] LABS: Absolute Lymphocyte Count 0.58 X10^3/uL (0.83-4.51); Hemoglobin 7.5 g/dL (13.0-16.5); Lymphocyte # 0.58 X10^3/ul (0.83-4.51); Lymphocyte % 25.8 % (19-41); Mean Corp Hgb Conc 31.3 g/dL (32-36); Mean Corpuscular Hgb 25.9 pg (27.0-32.0); Mean Corpuscular Volume 82.8 fL (80-94); Mean Platelet Vol. 11.4 fl (6.2-12.0); Monocyte# 0.61 X10^3/uL; Monocyte% 27.1 % (0-10); NRBC Flagged by Analyzer 0 % (0-5); Neutrophil # 1.04 X10^3/uL (2.7-7.7); Neutrophil % 46.2 % (47-70); POSITIVE COUNT YES; POSITIVE DIFFERENTIAL YES; POSITIVE MORPHOLOGY YES; Platelet Count 88 K/mm3 (150-450); RBC Distribution Width CV 16.2 % (11.6-14.6); RBC Distribution Width SD 49.1 fl (35.1-43.9); White Blood Count 2.3 K/mm3 (4.4-11.0)
[2021-05-22 06:33] LABS: Differential Indicated SCAN CRITERIA MET
[2021-05-22 06:56] LABS: Anion Gap 10 (5-15); BUN 22 mg/dL (7-18); BUN/Creat Ratio 12.8 RATIO (10-20); Calcium,Total 7.7 mg/dL (8.5-10.1); Chloride 111 mmol/L (98-107); Creatinine, Serum 1.72 mg/dL (0.70-1.30); EST Glomerular Filtration Rate 42 mL/min (>60); Est Glom Filt Rate - Afr Amer 51 mL/min (>60); Estimated Creatinine Clearance 43.78 ml/min; Glucose 123 mg/dL (74-106); Potassium 3.7 mmol/L (3.5-5.1); Sodium Level 142 mmol/L (136-145)
[2021-05-22 07:07] LABS: Anisocytosis RARE; Differential Comment SCANNED; Platelet Estimate SLT DEC (ADEQ)
[2021-05-22 07:08] LABS: Hypochromasia 1+; Microcytosis RARE
[2021-05-22 09:20] VITALS: BP 152/85; PULSE 117; RESP 16; TEMP 36.5; O2SAT 97
[2021-05-22 09:32] VITALS: PULSE 117
[2021-05-22] MEDS: Metoprolol Tartrate 25 MG Tablet 12.5 MG PO (09:32)
[2021-05-22 09:49] LABS: Pathologist Review Reviewed
--- NOTE | 2021-05-22 11:21 | PCM.DC.SUM ---
Providers Date of Admission: 05/19/21 Primary Care Physician: Marleny Primary Care Phys Consultations 05/19/21 16:16 Consult: Fatback Trimmer / Pulmonary Medicine Routine Consulting Provider: Lane Solo Reason for Consult: Severe Sepsis EMERGENT Consult: No MD Notified: Yes Date Notified: 05/19/21 Time Notified: 19:37 Method of Notification: Text Reason For Visit: UTI, SEPSIS Diagnosis Discharge Diagnosis (1) Septic shock: Status: Acute Code(s): A41.9 - Sepsis, unspecified organism; R65.21 - Severe sepsis with septic shock (2) Sinus tachycardia: Status: Acute Code(s): R00.0 - Tachycardia, unspecified (3) Acidosis, lactic: Status: Acute Code(s): E87.2 - Acidosis (4) Gram-negative bacteremia: Status: Acute Code(s): R78.81 - Bacteremia (5) Postoperative anemia: Status: Acute Code(s): D64.9 - Anemia, unspecified (6) FRANCIS (acute kidney injury): Status: Acute Code(s): N17.9 - Acute kidney failure, unspecified Medications at Discharge Home Medications cephalexin 500 mg PO Q8H #21 cap 05/22/21 metoprolol tartrate 25 mg PO BID #60 tab 05/22/21 Hospital Course Operations None Procedures Blood transfusion Summary of Care Provided Minutes Spent on Discharge: 41 Hospital Course: Mr. Alfaro is a 66-year-old white male who presented to the emergency department [facility] on 05/19/2021 with complaints of fever. He had recently undergone a urological surgery at [facility] for bladder cancer on May 10 and was released on May 16. He did require Wylie placement postoperatively which was removed on May 16. On admission he reported that he began having urinary frequency and dysuria along with fevers that started approximately 48 hours prior to admission. He is not yet receiving any chemo or radiation with regards to his bladder cancer. In the emergency department he was febrile with a temperature of 102.6 and tachycardic with a heart rate of 150 but initially was normotensive. His oxygen saturations were excellent on room air. He did progressively become hypotensive as low as 90/55 but his tachycardia did improve. He received 3 L of IV fluid bolus in the emergency department and cefepime was initiated. His serum creatinine was elevated to 2.5 and his lactate was 2.6. His UA was suggestive of infection and his chest x-ray showed only basilar atelectasis. His EKG showed sinus tachycardia. He unfortunately remained hypotensive despite appropriate fluid resuscitation and required initiation of Levophed of which he was on for approximately 36 hours. His initial hemoglobin was 7 and he was therefore given 1 unit of packed red blood cells by the emergency department. His urine and blood cultures were found to be positive with E. coli that was sensitive to ceftriaxone and therefore his antibiotics were deescalated from cefepime to ceftriaxone. His renal function did improve and was noted to be 1.73 on the day of discharge down from 2.55 on admission. I was able to review previous lab work and it appears that his baseline serum creatinine is 1.3-1.5. Despite clinical improvement he remained with mild sinus tachycardia and therefore was initiated on beta-theodore 25 mg twice daily. He tolerated this well. He developed some mild leukopenia and thrombocytopenia during his hospital course but I believe this is most likely related to his sepsis and or antibiotic dosing and should improve with time. His hemoglobin remained stable after initial transfusion and was 7.5 on the day of discharge. He was discharged on Keflex 500 mg 3 times daily to complete a total 10-day course given his complicated urinary tract infection as well as his E. coli bacteremia. Prescriptions for this and the metoprolol that was initiated were faxed to his pharmacy and he was discharged home in stable condition on 05/22/2021. He has a follow-up with his urologist soon with regards to his bladder cancer and ongoing treatment. Discharge diagnoses: Septic shock secondary to E. coli bacteremia/UTI-resolved E. coli bacteremia E. coli UTI Lactic acidosis-resolved RFANCIS on CKD stage IIIa-resolving Chronic normocytic anemia Thrombocytopenia secondary to sepsis and antibiotic use Leukopenia secondary to sepsis and antibiotic use Bladder cancer History of tobacco abuse Physical Exam Const alert, oriented x3, no apparent distress and average body habitus Constitutional Narrative: Upper middle-aged white male sitting up in a chair at the bedside, nursing is at the bedside, patient appears comfortable and nontoxic, has been able to ambulate independently around the room without any issues General Appearance: cooperative, comfortable, well kempt and well developed Orientation / Consciousness: awake Exam Limitations: no limitations HEENT normocephalic, head/scalp atraumatic, hearing grossly normal bilaterally, moist oral mucous membranes and oropharynx normal Eyes PERRL, EOMs intact bilaterally and no scleral icterus Eyes Narrative: No scleral icterus, conjunctiva pale Neck full ROM, no lymphadenopathy, supple and no JVD Neck Narrative: Trachea midline, no thyroid enlargement General: trachea midline Resp normal respiratory effort, normal air movement, no retractions, no use of accessory muscles and clear to auscultation bilaterally Resp Narrative: Few crackles at bilateral bases Auscultation: Negative for crackles, rales, rhonchi or wheezes Cardio regular rhythm, S1 normal heart sound, S2 normal heart sound, no murmurs, no rub, no gallops, no clicks, no JVD and peripheral pulses 2+ throughout Cardio Narrative: Mild tachycardia Rate: tachycardic GI normal to inspection, nondistended, normoactive bowel sounds, soft to palpation, non-tender and non-distended Extremity normal capillary refill and no clubbing, cyanosis or edema General Extremity: no tenderness to palpation of joints or extremities Skin no rashes or lesions noted, no wounds, skin turgor normal, no jaundice, no petechiae and no mottling General Skin Exam: no breakdown and turgor normal Lesions: no lesions Rashes: no rashes Neuro oriented x3, moves all extremities, no focal motor deficits and gait normal Sensorium / Orientation: awake and alert Speech: speech normal Psych thought process normal, cooperative and affect normal Psych Narrative: Very pleasant Appearance: appropriate Weight / BMI Weight Weight: 83.6 kg Body Mass Index (BMI) 26.3 ABG / Lab / Microbiology Data Result Diagrams: 05/22/21 05:37 05/22/21 05:37 Laboratory: Laboratory Results - last 24 hr 05/21/21 04:08: Diff Path Review Reviewed 05/22/21 05:37: WBC 2.3 L, RBC 2.90 L, Hgb 7.5 L, Hct 24.0 L, MCV 82.8, MCH 25.9 L, MCHC 31.3 L, RDW Std Deviation 49.1 H, RDW Coeff of Olga 16.2 H, Plt Count 88 L, MPV 11.4, Immature Gran % (Auto) 0.900, Neut % (Auto) 46.2 L, Lymph % (Auto) 25.8, [place] % (Auto) 27.1 H, Eos % (Auto) 0.0, Baso % (Auto) 0.0, Absolute Neuts (auto) 1.0 L, Absolute Lymphs (auto) 0.58 L, Nucleated RBC % 0, Differential Comment SCANNED, Diff Path Review May foll, Platelet Estimate SLT DEC, Hypochromasia 1+, Anisocytosis RARE, Microcytosis RARE 05/22/21 05:37: Sodium 142, Potassium 3.7, Chloride 111 H, Carbon Dioxide 21.0, Anion Gap 10, BUN 22 H, Creatinine 1.72 H, Estim Creat Clear Calc 43.78, Est GFR (MDRD) Af Amer 51 L, Est GFR (MDRD) Non-Af 42 L, BUN/Creatinine Ratio 12.8, Glucose 123 H, Calcium 7.7 L Microbiology: Microbiology 05/19/21 12:17 Blood Culture (Wb) - Right Forearm Blood Culture - Final 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 05/19/21 12:17 Blood Culture (Wb) - Anticubital Left Blood Culture - Final Escherichia coli 05/19/21 13:05 Urine, Clean Catch Urine Culture - Final Escherichia coli D/C Instructions Discharge Diet: No restrictions Discharge Activity: Return to Normal Activity Return to work on: 05/27/21 Meaningful Use Info Meaningful Use Diagnoses (Choose all that apply): None applicable Discharge Plan Admission Admit Date/Time: 05/19/21 14:33 Primary Reason for Your Visit: Septic Shock Attending Provider: Kaur Villalobos Primary Care Provider: Care Physician,No Primary Consulting Providers: Lane Solo Instructions Additional Instructions / Restrictions: 1. Please complete entire dose of antibiotics 2. Start oral antibiotics on 05/23/2021 3. Please follow-up with urologist as scheduled Discharge Orders/Prescriptions Prescriptions: New metoprolol tartrate 25 mg Tablet 25 mg PO BID Qty: 60 RF: 0 cephalexin 500 mg capsule 500 mg PO Q8H Qty: 21 RF: 0 Referrals / Follow Up: Care Physician,No Primary [Primary Care Provider] - NOT,DEFINED [NON-STAFF] - Disposition Disposition (needs filled in before D/C Order can be placed): Home, Self Care Charges/Coding Visit Charges Inpatient E&M: 85304 Disch Hosp
[2021-05-22 15:20] LABS: Pathologist Review Reviewed
== END 2021-05-22 13:10 | disposition home or self-care (01) | DRG 698 ==
LOC: ED 14:12 → ICU 15:46 → PCU 05-22 09:32
PROVIDERS: Family Medicine; Nurse Practitioner Family; Admitting Provider Internal Medicine; Emergency Provider Emergency Medicine; Visit Provider Internal Medicine
DX: T83.511A Infection and inflammatory reaction due to indwelling urethral catheter, initial encounter (principal); A41.51 Sepsis due to Escherichia coli [E. coli]; R65.21 Severe sepsis with septic shock; N17.9 Acute kidney failure, unspecified; E87.2 Acidosis; N39.0 Urinary tract infection, site not specified; B96.20 Unspecified Escherichia coli [E. coli] as the cause of diseases classified elsewhere; Y84.6 Urinary catheterization as the cause of abnormal reaction of the patient, or of later complication, without mention of misadventure at the time of the procedure; R31.9 Hematuria, unspecified; I12.9 Hypertensive chronic kidney disease with stage 1 through stage 4 chronic kidney disease, or unspecified chronic kidney disease; N18.31 Chronic kidney disease, stage 3a; C67.9 Malignant neoplasm of bladder, unspecified; D64.89 Other specified anemias; D63.0 Anemia in neoplastic disease; I95.9 Hypotension, unspecified; D69.59 Other secondary thrombocytopenia; D70.2 Other drug-induced agranulocytosis; T36.8X5A Adverse effect of other systemic antibiotics, initial encounter; R73.9 Hyperglycemia, unspecified; R00.0 Tachycardia, unspecified; Z79.899 Other long term (current) drug therapy; Z87.891 Personal history of nicotine dependence; Z23 Encounter for immunization
CPT/HCPCS: 36415; 71045; 80048; 80053; 81001; 83036; 83605; 85014; 85018; 85025; 85610; 85730; 86850; 86900; 86901; 86920; 86922; 87040; 87077; 87086; 87088; 87186; 87635; 93005; 97162; 97165; 97802; 99285; J7030; J7050; P9016; U0005; 90686; A4216; J0696; J1940; U0003

== ENCOUNTER 2021-07-13 15:37 | Emergency (ER) | payer OTHER, SELFPAY ==
[2021-07-13 15:39] VITALS: BP 128/73; PULSE 105; RESP 15; TEMP 36.8; O2SAT 99; BMI 22.6
--- NOTE | 2021-07-13 16:22 | EKG12_ITS ---
Test Reason : SOB Blood Pressure : / mmHG Vent. Rate : 093 BPM Atrial Rate : 093 BPM P-R Int : 126 ms QRS Dur : 092 ms QT Int : 342 ms P-R-T Axes : 059 030 038 degrees QTc Int : 425 ms Normal sinus rhythm Normal ECG Confirmed by NICKO MELENDREZ, CHUCK ([id number]), videotape editor MARTHA PRIEST ([id number]) on 07/15/2021 10:53:44 AM Referred By: Confirmed By:CHUCK MAHARAJ MD
--- NOTE | 2021-07-13 16:22 | ED.VIS.DYS ---
HPI History of Present Illness Chief Complaint: Cough Informant: patient and spouse/S.O. Narrative Narrative: 66-year-old male states that today he went to urgent care discuss a cough and some shortness of breath he has been experiencing for the past 15 days. He states that they were concerned that perhaps he had a DVT/PE and sent him to the emergency department. Patient denies any leg swelling or chest pain. He states that while he was at urgent care they mentioned that he was short of breath. Since he has not been in the bed he is not short of breath but he states that whenever he gets up he gets lightheaded and that short of breath with exertion. He denies any fevers. He notes some clear sputum production with coughing. was recently treated for bronchitis. He recently drove back from [place] and has a history of recent bladder surgery for bladder cancer. He states that while he was in [place] he needed to see a different urologist because of a kidney stone that he was passing. [facility] Medical History Bladder cancer Bladder cancer Former smoker Gram-negative bacteremia Hearing loss, left Hypertension Kidney stones Postoperative anemia Sinus tachycardia Home Medications cephalexin 500 mg PO Q8H #21 cap 05/22/21 [Rx Last Taken Unknown] metoprolol tartrate 25 mg PO BID #60 tab 05/22/21 [Rx Last Taken Unknown] Allergy/AdvReac Type Severity Reaction Status Date / Time Iodinated Contrast Media Allergy Rash Verified 07/13/21 15:38 [CONTRASTS] Surgical History History of bladder surgery Social History household members: spouse Smoking Status: Former smoker alcohol intake: current alcohol intake frequency: holidays/special occasions only substance use type: does not use ROS ROS ED Constitutional Constitutional ED: Denies chills, fever(s) or weight loss Eyes Eyes: Denies change in vision or diplopia ENT ENT ED: Reports rhinorrhea; Denies ear pain or sore throat Cardiovascular Cardiovascular: Denies chest pain, orthopnea, palpitations or racing heartbeat Respiratory/Chest Respiratory/Chest: Reports cough, dyspnea, dyspnea on exertion and sputum; Denies orthopnea Gastrointestinal Gastrointestinal: Denies abdominal pain, diarrhea, nausea or vomiting Genitourinary Genitourinary ED: Denies dysuria, hematuria or urinary frequency Musculoskeletal Musculoskeletal: Denies arthralgias or myalgias Integumentary Denies abscess or rash Neurologic Neurologic: Denies headache(s) or weakness Psychiatric Psychiatric: Denies anxiety, depression, suicidal ideation or suicidal thoughts Endocrine Endocrinology: Denies polydipsia, polyphagia or polyuria Allergic/Immunologic Allergic/Immunologic ED: Denies mouth swelling, tongue swelling or urticaria EXAM Physical Exam Const Vital Signs: 07/13/21 15:39 07/13/21 16:34 Temperature 98.3 F Temperature Source Temporal Pulse Rate 105 H Respiratory Rate 15 Respiratory Effort Normal Non-Labored Respiratory Depth Normal Respiratory Pattern Normal Blood Pressure 128/73 H Blood Pressure Mean 91 Pulse Ox 99 Oxygen Delivery Method Room Air Room Air Positive well nourished and well developed General Appearance ED: well developed HEENT Reports normocephalic, head/scalp atraumatic, TM's clear and moist mucous membranes Negative for atraumatic Tympanic Membrane ED: Yes TM's clear Eyes PERRL and EOMs intact bilaterally Neck no lymphadenopathy, supple and no JVD Resp normal respiratory effort and clear to auscultation bilaterally Cardio regular rate, regular rhythm and no murmurs GI normal to inspection, nondistended, normoactive bowel sounds and non-tender Palpation: soft Back/Spine no CVA tenderness and normal ROM Extremity normal to inspection General Extremety ED: Negative for edema General Extremity: Negative for edema Neuro oriented x3 and CN's II-XII intact bilaterally Sensorium / Orientation: alert Motor Exam: strength 5/5 throughout Psych mental status grossly normal Mood & Affect: Negative for depressed or tearful Skin no rashes or lesions noted and no wounds MDM MDM MDM Narrative Medical decision making narrative: White count is 2 with a hemoglobin of 8.7 and a platelet count of 94. BUN of 40 creatinine 2.58. My interpretation of the chest x-ray is no acute process. Patient ambulates without any difficulty. He has not had dyspnea or any significant cough since he has been here. I think the patient could benefit from a nephrology evaluation. He does not have a primary care cardiology or pulmonary doctors. He does see urology for the bladder cancer and kidney stones. Patient's creatinine is such that I cannot order a CTA of his chest. I do not think he has pulmonary embolism as this has been going on for 15 days his symptoms are intermittent and he is not having any pain. Lab Data Attestation: I reviewed the patient's lab results. Labs: Laboratory Results - last 24 hr 07/13/21 07/13/21 16:30 16:30 WBC 2.0 L RBC 3.46 L Hgb 8.7 L Hct 29.3 L MCV 84.7 MCH 25.1 L MCHC 29.7 L RDW Std Deviation 67.4 H RDW Coeff of Olga 22.5 H Plt Count 94 L MPV 9.2 Immature Gran % (Auto) 1.000 H Neut % (Auto) 54.9 Lymph % (Auto) 36.0 [place] % (Auto) 7.6 Eos % (Auto) 0.5 Baso % (Auto) 0.0 Absolute Neuts (auto) 1.1 L Absolute Lymphs (auto) 0.71 L Nucleated RBC % 0 Differential Comment Sodium 142 Potassium 4.4 Chloride 115 H Carbon Dioxide 24.0 Anion Gap 3 L BUN 40 H Creatinine 2.58 H Estim Creat Clear Calc 28.60 Est GFR (MDRD) Af Amer 32 L Est GFR (MDRD) Non-Af 26 L BUN/Creatinine Ratio 15.5 Glucose 118 H Calcium 8.8 Total Bilirubin 0.40 AST 16 ALT 19 Alkaline Phosphatase 67 Total Protein 6.6 Albumin 3.2 Globulin 3.4 Albumin/Globulin Ratio 0.9 Radiography Diagnostic Testing: Clinical Impression(s) from Imaging Studies Chest X-Ray 07/13/21 17:00 IMPRESSION: No acute radiographic abnormalities. Electronically Signed: Ramon Mares MD at 17:17 EST Tel , Service support , EKG Initial EKG: Attestation: I personally reviewed and interpreted this EKG as follows: Comments: Normal sinus rhythm with a ventricular rate of 93 bpm. Discharge Plan Triage Chief Complaint: Cough ED Provider: Jose Herrera Dx/Rx/DC Orders Clinical Impression: Acute dyspnea, FRANCIS (acute kidney injury) Instructions: ED Dyspnea Prescriptions: No Action metoprolol tartrate 25 mg Tablet 25 mg PO BID Qty: 60 RF: 0 cephalexin 500 mg capsule 500 mg PO Q8H Qty: 21 RF: 0 Primary Care Provider: Care Physician,No Primary Referrals: Amy Villalobos DO [STAFF PHYSICIAN] - As soon as possible Care Physician,No Primary [Primary Care Provider] - Disposition Disposition: Home, Self Care
[2021-07-13 16:34] VITALS: O2SAT 99
[2021-07-13 16:42] LABS: Absolute Lymphocyte Count 0.71 X10^3/uL (0.83-4.51); Absolute Neutrophil Count 1.1 X10^3/uL (2.0-7.7); Eosinophil# 0.01 X10^3/uL; Eosinophils% 0.5 % (0-5); Hematocrit 29.3 % (40-54); Hemoglobin 8.7 g/dL (13.0-16.5); Lymphocyte # 0.71 X10^3/ul (0.83-4.51); Mean Corp Hgb Conc 29.7 g/dL (32-36); Mean Corpuscular Hgb 25.1 pg (27.0-32.0); Mean Corpuscular Volume 84.7 fL (80-94); Mean Platelet Vol. 9.2 fl (6.2-12.0); Monocyte# 0.15 X10^3/uL; Monocyte% 7.6 % (0-10); NRBC Flagged by Analyzer 0 % (0-5); Neutrophil # 1.08 X10^3/uL (2.7-7.7); Neutrophil % 54.9 % (47-70); POSITIVE COUNT YES; POSITIVE MORPHOLOGY YES; Platelet Count 94 K/mm3 (150-450); RBC Distribution Width CV 22.5 % (11.6-14.6); RBC Distribution Width SD 67.4 fl (35.1-43.9); Red Blood Count 3.46 M/mm3 (4.6-6.2)
[2021-07-13 16:44] LABS: Differential Indicated SCAN CRITERIA MET
[2021-07-13 16:57] LABS: ALB/GLOB Ratio 0.9 RATIO (0.9-2.4); AST(SGOT) 16 U/L (15-37); Alanine Aminotransfer ALT/SGPT 19 U/L (16-61); Albumin, Serum 3.2 g/dL (3.2-5.0); Alkaline Phosphatase 67 U/L (45-117); Anion Gap 3 (5-15); BUN 40 mg/dL (7-18); BUN/Creat Ratio 15.5 RATIO (10-20); Calcium,Total 8.8 mg/dL (8.5-10.1); Chloride 115 mmol/L (98-107); Creatinine, Serum 2.58 mg/dL (0.70-1.30); EST Glomerular Filtration Rate 26 mL/min (>60); Est Glom Filt Rate - Afr Amer 32 mL/min (>60); Globulin 3.4 g/dL (2.2-4.2); Glucose 118 mg/dL (74-106); Potassium 4.4 mmol/L (3.5-5.1); Protein, Total 6.6 g/dL (6.4-8.2); Sodium Level 142 mmol/L (136-145)
--- NOTE | 2021-07-13 17:00 | RAD_ITS ---
INDICATION: cough EXAMINATION/TECHNIQUE: X-RAY - XR Chest 1 View COMPARISON: 05/19/2021. FINDINGS: Chronic lung changes. No acute lung findings. The cardiomediastinal silhouette is unremarkable. No pleural effusion or pneumothorax. No acute osseous abnormalities. RAD/Chest 1 View (Portable) IMPRESSION: No acute radiographic abnormalities. Electronically Signed: Ramon Mares MD at 17:17 EST Tel , Service support ,
[2021-07-13 17:36] VITALS: O2SAT 97
[2021-07-13 17:59] VITALS: BP 117/78; PULSE 92; RESP 17; O2SAT 99
== END 2021-07-13 18:09 | disposition home or self-care (01) ==
PROVIDERS: Emergency Provider Emergency Medicine; Visit Provider Emergency Medicine
DX: R06.02 Shortness of breath (principal); N17.9 Acute kidney failure, unspecified; C67.9 Malignant neoplasm of bladder, unspecified; N20.0 Calculus of kidney; I10 Essential (primary) hypertension; Z79.899 Other long term (current) drug therapy; Z87.891 Personal history of nicotine dependence
CPT/HCPCS: 71045; 80053; 85025; 93005; 99284; A4216

== ENCOUNTER 2022-03-28 13:33 | Emergency (ER) | payer SELFPAY ==
[2022-03-28] VITALS (13 sets, daily range): BP systolic 137–167; BP diastolic 68–85; PULSE 64–122; RESP 17–20; TEMP 36.6–37.4; O2SAT 93–98; BMI 21.5
--- NOTE | 2022-03-28 13:44 | EKG12_ITS ---
Test Reason : SOB Blood Pressure : / mmHG Vent. Rate : 116 BPM Atrial Rate : 116 BPM P-R Int : 120 ms QRS Dur : 090 ms QT Int : 302 ms P-R-T Axes : 053 049 047 degrees QTc Int : 419 ms Sinus tachycardia Otherwise normal ECG Confirmed by ANTWAN MELENDREZ, ROGELIO ([id number]), newspaper or periodical editor MARTHA PRIEST ([id number]) on 03/31/2022 10:08:59 AM Referred By: YOMAIRA Confirmed By:ROGELIO MONCADA MD
[2022-03-28 14:02] LABS: Absolute Lymphocyte Count 0.57 X10^3/uL (0.83-4.51); Absolute Neutrophil Count 2.3 X10^3/uL (2.0-7.7); Eosinophil# 0.01 X10^3/uL; Eosinophils% 0.3 % (0-5); Hematocrit 32.1 % (40-54); Hemoglobin 10.3 g/dL (13.0-16.5); Lymphocyte # 0.57 X10^3/ul (0.83-4.51); Lymphocyte % 16.3 % (19-41); Mean Corp Hgb Conc 32.1 g/dL (32-36); Mean Corpuscular Hgb 27.2 pg (27.0-32.0); Mean Corpuscular Volume 84.9 fL (80-94); Mean Platelet Vol. 8.4 fl (6.2-12.0); Monocyte# 0.59 X10^3/uL; Monocyte% 16.9 % (0-10); NRBC Flagged by Analyzer 0 % (0-5); Neutrophil # 2.31 X10^3/uL (2.7-7.7); Neutrophil % 65.9 % (47-70); POSITIVE DIFFERENTIAL YES; Platelet Count 166 K/mm3 (150-450); RBC Distribution Width CV 15.3 % (11.6-14.6); RBC Distribution Width SD 47.5 fl (35.1-43.9); Red Blood Count 3.78 M/mm3 (4.6-6.2); White Blood Count 3.5 K/mm3 (4.4-11.0)
[2022-03-28 14:05] LABS: Differential Indicated SCAN CRITERIA MET
--- NOTE | 2022-03-28 14:08 | RAD_ITS ---
STUDY: X-RAY CHEST REASON FOR EXAM: Male, 67 years old. SOB, COUGH TECHNIQUE: Single AP portable view of the chest. COMPARISON: Comparison is made with prior study dated 07/13/2021. FINDINGS: Hyperinflation. Stable mild degree of scarring at the left lung base and right mid lung. There is no demonstrated pleural abnormality. Normal size heart. Normal mediastinum and alejandra. Normal visualized pulmonary arteries. Normal visualized aortic arch and descending thoracic aorta. Normal visualized thoracic spine. Normal visualized ribs, clavicles, and shoulders. There is no demonstrated abnormality of the visualized soft tissue structures of the upper abdomen. RAD/Chest 1 View (Portable) IMPRESSION: Hyperinflation. Stable mild degree of scarring as described. Electronically Signed: Julian Wyatt MD at 14:33 EDT ,
[2022-03-28 14:19] LABS: Anion Gap 8 (5-15); BUN 46 mg/dL (7-18); BUN/Creat Ratio 9.2 RATIO (10-20); Calcium,Total 9.1 mg/dL (8.5-10.1); Chloride 112 mmol/L (98-107); Creatinine, Serum 4.98 mg/dL (0.70-1.30); EST Glomerular Filtration Rate 12 mL/min (>60); Est Glom Filt Rate - Afr Amer 15 mL/min (>60); Estimated Creatinine Clearance 13.86 ml/min; Glucose 177 mg/dL (74-106); Potassium 4.8 mmol/L (3.5-5.1); Sodium Level 143 mmol/L (136-145)
--- NOTE | 2022-03-28 15:37 | EDS_ITS ---
HPI History of Present Illness Chief Complaint: Shortness of Breath Informant: patient [facility] Medical History Bladder cancer Bladder cancer Former smoker Gram-negative bacteremia Hearing loss, left Hypertension Kidney stones Postoperative anemia Sinus tachycardia Home Medications tamsulosin 0.4 mg capsule (Flomax) 0.4 mg PO DAILY 03/28/22 [History Last Taken Unknown] Allergy/AdvReac Type Severity Reaction Status Date / Time Iodinated Contrast Media Allergy Rash Verified 03/28/22 13:34 [CONTRASTS] Surgical History History of bladder surgery Social History household members: spouse Smoking Status: Former smoker alcohol intake: current alcohol intake frequency: holidays/special occasions only substance use type: does not use ROS ROS ED Constitutional Constitutional ED: Denies chills, fever(s) or weight loss Eyes Eyes: Denies change in vision or diplopia ENT ENT ED: Denies ear pain, rhinorrhea or sore throat Cardiovascular Cardiovascular: Reports palpitations; Denies chest pain, orthopnea or racing heartbeat Respiratory/Chest Respiratory/Chest: Reports cough and dyspnea; Denies orthopnea Gastrointestinal Gastrointestinal: Reports diarrhea; Denies abdominal pain, nausea or vomiting Genitourinary Genitourinary ED: Denies dysuria, hematuria or urinary frequency Musculoskeletal Musculoskeletal: Denies arthralgias or myalgias Integumentary Denies abscess or rash Neurologic Neurologic: Denies headache(s) or weakness Psychiatric Psychiatric: Denies anxiety, depression, suicidal ideation or suicidal thoughts Endocrine Endocrinology: Denies polydipsia, polyphagia or polyuria Allergic/Immunologic Allergic/Immunologic ED: Denies mouth swelling, tongue swelling or urticaria EXAM Physical Exam Const Vital Signs: 03/28/22 13:36 03/28/22 13:57 03/28/22 15:10 Temperature 98.5 F Temperature Source Temporal Pulse Rate 122 H Respiratory Rate 18 18 Respiratory Effort Respiratory Pattern Blood Pressure 147/78 H Blood Pressure Mean 101 Pulse Ox 93 94 97 Oxygen Delivery Method Room Air Room Air Room Air 03/28/22 15:12 03/28/22 15:13 03/28/22 15:59 Temperature 99.4 F H Temperature Source Temporal Pulse Rate 108 H Respiratory Rate 17 Respiratory Effort Short of Breath Respiratory Pattern Normal Blood Pressure 137/79 H 148/79 H Blood Pressure Mean 98 102 Pulse Ox 97 97 Oxygen Delivery Method Room Air Room Air Room Air 03/28/22 15:45 03/28/22 17:03 03/28/22 17:04 Temperature 99.4 F H 99.4 F H Temperature Source Temporal Temporal Pulse Rate 108 H 107 H 107 H Respiratory Rate 17 18 18 Respiratory Effort Respiratory Pattern Blood Pressure 148/79 H 162/85 H 162/85 H Blood Pressure Mean 102 110 110 Pulse Ox 97 97 97 Oxygen Delivery Method Room Air Room Air Room Air 03/28/22 18:04 03/28/22 19:00 Temperature 98.5 F 98.2 F Temperature Source Oral Temporal Pulse Rate 101 H 106 H Respiratory Rate 18 18 Respiratory Effort Respiratory Pattern Blood Pressure 167/78 H 152/77 H Blood Pressure Mean 107 102 Pulse Ox 98 97 Oxygen Delivery Method Room Air Room Air Positive well nourished and well developed General Appearance ED: well developed HEENT Reports normocephalic, head/scalp atraumatic and moist mucous membranes Eyes PERRL and EOMs intact bilaterally Neck no lymphadenopathy, supple and no JVD Resp normal respiratory effort and clear to auscultation bilaterally Cardio regular rate, regular rhythm and no murmurs Rate: tachycardic GI normal to inspection, nondistended, normoactive bowel sounds and non-tender Palpation: soft Back/Spine no CVA tenderness and normal ROM Extremity normal to inspection General Extremety ED: Negative for edema General Extremity: Negative for edema Neuro oriented x3 and CN's II-XII intact bilaterally Sensorium / Orientation: alert Motor Exam: strength 5/5 throughout Psych mental status grossly normal Mood & Affect: Negative for depressed or tearful Skin no rashes or lesions noted and no wounds MDM MDM MDM Narrative Medical decision making narrative: My interpretation of the chest x-ray is no acute process. White count 3.5 with a hemoglobin of 12.3. Creatinine 4.98 which does represent a significant increase off of his last creatinine. Urinalysis shows obvious infection with 4+ bacteria greater than 100 white cells 50-100 red cells and nitrate positive. Blood cultures and urine cultures were obtained. He started receiving IV fluids and received Rocephin. Noncontrasted CT of the abdomen pelvis was obtained. This demonstrated bilateral renal obstruction with indwelling bilateral ureteral stents and distended diffusely thickened bladder. Enlarged prostate noted. Interestingly enough the patient urinated just prior to the CT. He states he has not been feeling that he is able to empty his bladder. Wylie catheter was placed. Lactic acid returns normal. I spoke with [facility]. Spoke with Dr. Valdes from the medicine service who will be admitting. Lab Data Attestation: I reviewed the patient's lab results. Labs: Laboratory Results - last 24 hr 03/28/22 03/28/22 03/28/22 13:55 13:55 13:55 WBC 3.5 L RBC 3.78 L Hgb 10.3 L Hct 32.1 L MCV 84.9 MCH 27.2 MCHC 32.1 RDW Std Deviation 47.5 H RDW Coeff of Olga 15.3 H Plt Count 166 MPV 8.4 Immature Gran % (Auto) 0.600 Neut % (Auto) 65.9 Lymph % (Auto) 16.3 L [place] % (Auto) 16.9 H Eos % (Auto) 0.3 Baso % (Auto) 0.0 Absolute Neuts (auto) 2.3 Absolute Lymphs (auto) 0.57 L Nucleated RBC % 0 [address] Review May foll Sodium 143 Potassium 4.8 Chloride 112 H Carbon Dioxide 23.0 Anion Gap 8 BUN 46 H Creatinine 4.98 H Estim Creat Clear Calc 13.86 Est GFR (MDRD) Af Amer 15 L Est GFR (MDRD) Non-Af 12 L BUN/Creatinine Ratio 9.2 L Glucose 177 H Lactic Acid Calcium 9.1 Phosphorus Magnesium 2.0 Total Bilirubin 0.40 Direct Bilirubin 0.12 AST 12 L ALT 11 L Alkaline Phosphatase 55 Total Protein 7.6 Albumin 3.3 Globulin 4.3 H Urine Color Urine Clarity Urine pH Ur Specific [place] Urine Protein Urine Glucose (UA) Urine Ketones Urine Occult Blood Urine Nitrite Urine Bilirubin Urine Urobilinogen Ur Leukocyte Esterase Urine RBC Urine WBC Ur Squamous Epith Cells Urine Bacteria Urine Mucus 03/28/22 03/28/22 03/28/22 13:55 16:04 17:00 WBC RBC Hgb Hct MCV MCH MCHC RDW Std Deviation RDW Coeff of Olga Plt Count MPV Immature Gran % (Auto) Neut % (Auto) Lymph % (Auto) [place] % (Auto) Eos % (Auto) Baso % (Auto) Absolute Neuts (auto) Absolute Lymphs (auto) Nucleated RBC % Diff Path Review Sodium Potassium Chloride Carbon Dioxide Anion Gap BUN Creatinine Estim Creat Clear Calc Est GFR (MDRD) Af Amer Est GFR (MDRD) Non-Af BUN/Creatinine Ratio Glucose Lactic Acid 0.7 Calcium Phosphorus 3.2 Magnesium Total Bilirubin Direct Bilirubin AST ALT Alkaline Phosphatase Total Protein Albumin Globulin Urine Color Straw Urine Clarity Cloudy Urine pH 7.0 Ur Specific [place] 1.010 Urine Protein 100 H Urine Glucose (UA) Normal Urine Ketones Negative Urine Occult Blood 250 H Urine Nitrite Positive H Urine Bilirubin Negative Urine Urobilinogen Normal Ur Leukocyte Esterase 500 H Urine RBC 50-100 SEEN Urine WBC >100 SEEN Ur Squamous Epith Cells 5-10 SEEN Urine Bacteria 4+ Urine Mucus 0 SEEN Radiography Diagnostic Testing: Clinical Impression(s) from Imaging Studies Chest X-Ray 03/28/22 14:08 IMPRESSION: Hyperinflation. Stable mild degree of scarring as described. Electronically Signed: Julian Wyatt MD at 14:33 EDT , Abdomen/Pelvis CT 03/28/22 16:22 IMPRESSION: Prominence of the interstitial markings in the lower lobes with focal reticulonodular thickening at left base possibly inflammatory. Hepatosplenomegaly with retroperitoneal as well as mesenteric venous collaterals consistent with portal hypertension. Relatively severe bilateral renal obstruction with indwelling bilateral ureterovesical stent in association with distended diffusely thick-walled bladder and enlarged prostate likely due to bladder outlet obstruction. Possibility of stent obstruction cannot be excluded. Nonspecific ileus with fecal retention in the colon. No evidence for small bowel obstruction or acute appendicitis Other findings as above Electronically Signed: Dae Arboleda MD at 16:57 EDT , EKG Initial EKG: Attestation: I personally reviewed and interpreted this EKG as follows: Comments: Sinus tachycardia with a ventricular rate of 116 bpm. Treatment and Re-Evaluation Narrative: 67-year-old male with no primary care doctor presenting to the emergency department with the chief complaint of cough. States he has had a cough for the past month. It is worse when he stands up and moves. He also notes that he has developed a subjective fever up to 98 degrees and some diarrhea that is intermittent. He states he has not been eating or drinking as well. He states he sees a school treasurer in [place] and sees urology at [facility]. He states he had a history of bladder cancer in December had a cystoscopy and TURP as well as ureteral stent placement bilaterally. Today he went to urgent care which sent him to the emergency department. Discharge Plan Triage Chief Complaint: Shortness of Breath Other Complaint: Cough ED Provider: Jose Herrera Dx/Rx/DC Orders Clinical Impression: Bladder cancer, Hydronephrosis, Acute bilateral obstructive uropathy, Acute renal failure, Benign prostatic hyperplasia, Cough Prescriptions: No Action tamsulosin [Flomax] 0.4 mg Capsule 0.4 mg PO DAILY Primary Care Provider: Care Physician,No Primary Referrals: Care Physician,No Primary [Primary Care Provider] - Disposition Disposition: Acute Care Hospital Discharge Location: [facility]
[2022-03-28 15:41] LABS: Phosphorus 3.2 mg/dL (2.5-4.9)
[2022-03-28 15:43] LABS: AST(SGOT) 12 U/L (15-37); Alanine Aminotransfer ALT/SGPT 11 U/L (16-61); Albumin, Serum 3.3 g/dL (3.2-5.0); Alkaline Phosphatase 55 U/L (45-117); Bilirubin, Direct 0.12 mg/dL (0.00-0.30); Globulin 4.3 g/dL (2.2-4.2); Protein, Total 7.6 g/dL (6.4-8.2)
[2022-03-28 16:10] LABS: Mucous, Urine 0 SEEN /hpf (<or=2+)
--- NOTE | 2022-03-28 16:22 | CT_ITS ---
STUDY: CT ABDOMEN AND PELVIS WITHOUT CONTRAST REASON FOR EXAM: Male, 67 years old. renal failure RADIATION DOSAGE (If Supplied By Facility): CTDIvol = ( 6.58 ) mGy, DLP = ( 355.34 ) mGycm TECHNIQUE: Transaxial images were obtained from the dome of the diaphragm to the symphysis pubis without oral contrast, and without intravenous contrast. Sagittal and coronal images were reconstructed. Individualized dose optimization techniques were used for this CT. COMPARISON: None. FINDINGS: Interstitial thickening with thickening of bronchial heard in both lower lobes and mild focal reticulonodular thickening in left lower lobe possibly inflammatory.. The visualized portions of the heart are within normal limits. Liver is enlarged. There is a small cyst in left lobe. Bile ducts not dilated.. There are bilirubin type stones within the gallbladder without evidence for pericholecystic edema. Nonspecific enlargement of the spleen. There are retroperitoneal and mesenteric venous collaterals as well as recanalization of the umbilical vein consistent with portal hypertension. Normal pancreas. Normal bilateral adrenal glands. There is a tiny nonobstructing left renal calculus. There is moderate to severe left hydroureteronephrosis to the level of the bladder with more severe obstruction on the right. There are bilateral ureterovesical stent present. There are 2 small right renal cysts which will not require additional imaging. Normal visualized stomach. Nonspecific ileus with diffuse fecal retention in the colon. No evidence for small bowel obstruction.. No evidence for acute appendicitis.. There appear to be mesenteric venous collaterals as well as possible small subcentimeter nodes. Atherosclerotic changes of the aorta without evidence for aortic aneurysm... Normal inferior vena cava. The bladder is distended and thick-walled in association with enlargement of prostate possibly due to chronic outlet obstruction. Cannot exclude coexisting cystitis. Normal abdominal wall. Lumbar spine demonstrates degenerative change.. CT/Abdomen/Pelvis without Cont IMPRESSION: Prominence of the interstitial markings in the lower lobes with focal reticulonodular thickening at left base possibly inflammatory. Hepatosplenomegaly with retroperitoneal as well as mesenteric venous collaterals consistent with portal hypertension. Relatively severe bilateral renal obstruction with indwelling bilateral ureterovesical stent in association with distended diffusely thick-walled bladder and enlarged prostate likely due to bladder outlet obstruction. Possibility of stent obstruction cannot be excluded. Nonspecific ileus with fecal retention in the colon. No evidence for small bowel obstruction or acute appendicitis Other findings as above Electronically Signed: Dae Arboleda MD at 16:57 EDT ,
[2022-03-28 16:27] LABS: Color, Urine Straw (Yellow); Glucose, Dipstick Normal (Normal); Ketone-Dipstick Negative (Negative); Leukocyte Esterase-Dipstick 500 /ul (Negative); Nitrite-Dipstick Positive (Negative); Occult Blood-Urine 250 /ul (Negative); Protein-Dipstick 100 mg/dl (Negative); Urine Bilirubin Dipstick Negative (Negative); Urine Clarity Cloudy (Clear); Urine Urobilinogen Normal (Normal)
[2022-03-28 16:42] LABS: Bacteria 4+ /hpf (None Seen); Red Blood Cells-Urine 50-100 SEEN /hpf (0-5); Squamous Epithelial Cells - UA 5-10 SEEN /hpf (0-5); White Blood Cells >100 SEEN /hpf (0-5)
[2022-03-28] MEDS: 0.9% Normal Saline 1,000 ML 999 ML IV (17:01)
[2022-03-28] MEDS: Ceftriaxone 1 GM/50 ML BAG IV (17:25)
[2022-03-28] MEDS: Morphine 4 MG/ML Syringe IV (17:33)
[2022-03-28] MEDS: Ondansetron 4 MG/2 ML Vial IV (17:33)
[2022-03-28 18:08] LABS: Lactic Acid 0.7 mmol/L (0.4-1.9)
[2022-03-28] MEDS: 0.9% Normal Saline 1,000 ML 200 ML IV (18:26)
--- NOTE | 2022-03-28 21:39 | ED.RN ---
Report given to David SCHNEIDER.
[2022-03-31 13:32] LABS: Pathologist Review Reviewed
== END 2022-03-28 21:42 | disposition short-term general hospital (02) ==
PROVIDERS: Emergency Provider Emergency Medicine; Visit Provider Emergency Medicine
DX: C67.9 Malignant neoplasm of bladder, unspecified (principal); N17.9 Acute kidney failure, unspecified; N13.30 Unspecified hydronephrosis; N40.1 Benign prostatic hyperplasia with lower urinary tract symptoms; R39.14 Feeling of incomplete bladder emptying; R05.9 Cough, unspecified; I10 Essential (primary) hypertension; Z87.442 Personal history of urinary calculi; Z87.891 Personal history of nicotine dependence
CPT/HCPCS: 51702; 71045; 74176; 80048; 80076; 81001; 83605; 83735; 84100; 85025; 87040; 87086; 87088; 87811; 93005; 94760; 96361; 96365; 96375; 99285; J7030; A4216; J2405